=== PATIENT | female | born 1985 | race Caucasian/White ===

== ENCOUNTER → 2020-02-06 11:06 | Outpatient (BNVA) | payer MEDICAID, SELFPAY | PROVIDERS: Visit Provider Nurse Practitioner Women's Health | DX: O09.899 Supervision of other high risk pregnancies, unspecified trimester (principal); O99.340 Other mental disorders complicating pregnancy, unspecified trimester; F41.9 Anxiety disorder, unspecified; O99.341 Other mental disorders complicating pregnancy, first trimester; F32.9 Major depressive disorder, single episode, unspecified; G47.00 Insomnia, unspecified; O99.331 Smoking (tobacco) complicating pregnancy, first trimester; O99.311 Alcohol use complicating pregnancy, first trimester | CPT/HCPCS: 80307; 81000 ==

== ENCOUNTER → 2020-03-01 07:54 | Outpatient (BNVA) | payer MEDICAID, SELFPAY | PROVIDERS: Visit Provider Obstetrics & Gynecology | DX: O09.899 Supervision of other high risk pregnancies, unspecified trimester (principal); O99.311 Alcohol use complicating pregnancy, first trimester; O23.599 Infection of other part of genital tract in pregnancy, unspecified trimester; B96.89 Other specified bacterial agents as the cause of diseases classified elsewhere; F41.9 Anxiety disorder, unspecified; O99.341 Other mental disorders complicating pregnancy, first trimester; F32.9 Major depressive disorder, single episode, unspecified; G47.00 Insomnia, unspecified; O99.331 Smoking (tobacco) complicating pregnancy, first trimester | CPT/HCPCS: 80307; 81000; 83036; 85027; 86592; 86762; 86803; 86850; 86900; 87086; 87340; 87491; 87591 ==

== ENCOUNTER → 2020-03-28 14:19 | Outpatient (BNVA) | payer MEDICAID, SELFPAY | PROVIDERS: Visit Provider Nurse Practitioner Women's Health | DX: O09.899 Supervision of other high risk pregnancies, unspecified trimester (principal); B96.89 Other specified bacterial agents as the cause of diseases classified elsewhere; O23.599 Infection of other part of genital tract in pregnancy, unspecified trimester; F41.9 Anxiety disorder, unspecified; O99.341 Other mental disorders complicating pregnancy, first trimester; F32.9 Major depressive disorder, single episode, unspecified; G47.00 Insomnia, unspecified; O99.331 Smoking (tobacco) complicating pregnancy, first trimester; O99.311 Alcohol use complicating pregnancy, first trimester | CPT/HCPCS: 81000; 87086 ==

== ENCOUNTER → 2020-04-12 09:28 | Outpatient (BNVA) | payer MEDICAID, SELFPAY | PROVIDERS: Visit Provider Obstetrics & Gynecology | DX: Z36.89 Encounter for other specified antenatal screening (principal) | CPT/HCPCS: 76805 ==

== ENCOUNTER → 2020-04-16 09:52 | Outpatient (BNVA) | payer MEDICAID, SELFPAY | PROVIDERS: Visit Provider Obstetrics & Gynecology | DX: O09.899 Supervision of other high risk pregnancies, unspecified trimester (principal); F41.9 Anxiety disorder, unspecified; O99.341 Other mental disorders complicating pregnancy, first trimester; F32.9 Major depressive disorder, single episode, unspecified; G47.00 Insomnia, unspecified; O99.331 Smoking (tobacco) complicating pregnancy, first trimester; O99.311 Alcohol use complicating pregnancy, first trimester | CPT/HCPCS: 81000 ==

== ENCOUNTER 2020-04-19 08:56 | Emergency (ER) | payer MEDICAID, SELFPAY ==
[2020-04-19 09:01] VITALS: BP 127/78; PULSE 95; RESP 18; TEMP 36.3; O2SAT 95; BMI 33.3
--- NOTE | 2020-04-19 09:07 | CT_ITS ---
WS: [id number] CT NECK TECHNIQUE: Contrast-enhanced CT of the neck with coronal and sagittal reformatted images. CLINICAL INFORMATION: neck swlling, swelling in submandicular space COMPARISON: None. DLP: 666.[address] scans at [facility] use at least one of these dose optimization techniques: automat ed exposure control; mA and/or kV adjustment per patient size (includes targeted exams where dose is matched to clinical indication); or iterative reconstruction. FINDINGS:Small amount of inflammatory stranding and induration about the left aspect of the mandible. Recommend correlation for cellulitis. This is most likely odontogenic in origin. No evidence of oste omyelitis. Parotid glands are normal in appearance. Normal submandibular glands. A few prominent submandibular l ymph nodes likely reactive. No drainable fluid collection or abscess. Prominent left jugulodigastric lymph node measures 10 mm within normal limits. Tongue base is normal in appearance. Normal paraphary ngeal fat. No evidence of supraglottic or glottic mass. Normal subglottic airway. Lung apices are well aerated. Normal thyroid gland. Paranasal sinuses and mastoid air cells are well aerated. CT/CT neck w con* [id number] IMPRESSION: 1. Mild inflammatory stranding with induration and edema about the left anteri or mandible likely odontogenic in origin. Recommend correlation for dental infe ction and cellulitis. No osteomyelitis. 2. No drainable fluid collection or abscess. 3. A few reactive submandibular lymph nodes. 4. No cervical lymphadenopathy. 5. No other significant findings. Notified Mainor Russ DO at 04/19/2020 10:33 AM.
--- NOTE | 2020-04-19 09:15 | ED_ITS ---
HPI - Dental/Oral General: Chief complaint: Dental/Oral Stated complaint: Face swollen/took alot of Ibu/tylenol Time Seen by Provider: 04/19/20 08:59 History of Present Illness: HPI Narrative: 34 o female with a compilants of a dental abscess for the last several weeks. She had an appoitnment w a dentist last motnh and did not go. She had increasing pain and swelling. She is not had difficulty swallowing but she feels like it is changing her voice a bit. She has had swelling extending underneath the jaw. Yesterday she took over 9 g of Tylenol and also took several grams of ibuprofen. She has not had any fever sweats or chills. She is currently approximately 21 weeks MD Complaint: tooth pain Onset (ago): day(s) Duration: constant Severity: mild Relieving factors: nothing Exacerbating factors: nothing Associated symptoms: Reports gum swelling; Denies ear or mastoid pain, fever(s), odynophagia, sore throat or tongue swelling Treatment prior to arrival: none Review of Systems Const: Denies: fever(s) ENMT: Denies: odynophagia or ear or mastoid pain Card: Denies: chest pain, edema, dyspnea on exertion or orthopnea Resp: Denies: dyspnea, productive cough or non-productive cough GI: Denies: abdominal pain, nausea, vomiting, hematemesis, coffee ground emesis, diarrhea, constipation, bloating, hematochezia or melena : Denies: flank pain, difficulty voiding, dysuria, urinary frequency or urinary urgency Skin/Breast: Denies: rash or pruritus All/Imm: Denies: tongue swelling PFSH ED PFSH: Medical History Anxiety and depression Anxiety during Depression during No pertinent past medical history neghx: htn,dm,thyroid,dvt/pe,herpes ---denies partner with herpes Surgical History History of tonsillectomy and adenoidectomy Family History Mother Diabetes Unknown Heart disease Maternal side in general Thyroid disease Maternal side in general Family/Other Ovarian cancer Maternal Aunt-- dx age unknown Denies family history of Colon cancer Breast cancer Bleeding disorder Hypertension Uterine cancer Stroke Social History Additional social history: - Tobacco use: smokes 0.25 PPD; this is down from 1-1.5 ppd Alcohol use: no longer drinking during as of 04/16/2020, had been having couple glasses of wine Drug use: denies Physical Exam Const: COMMON NORMALS: no acute distress GENERAL APPEARANCE: cooperative an d comfortable ORIENTATION/CONSCIOUSNESS: Yes awake, Yes oriented to person, Yes oriented to place and Yes oriented to time HENMT: COMMON NORMALS: normocephalic, atraumatic and hearing grossly normal bilaterally HEAD & SCALP: normocephalic and atraumatic Neck/C-Spine: OTHER: Moderate swelling of the left mid mandible does not ext end into the submandibular space on exam Lymph: OTHER: No submandibular lymphadenopathy Resp: COMMON NORMALS: normal respiratory effort, No retractions, No use of accessory muscles and clear to auscultation bilaterally AUSCULTATION: clear to auscultation bilaterally Cardio: COMMON NORMALS: regular rate, regular rhythm and No murmurs present (Cardio) RATE: regular rate RHYTHM: regular rhythm GI: COMMON NORMALS: Soft to palpation and No hepatosplenomegaly present AUSCULTATION: Yes normoactive bowel sounds PALPATION: Yes Soft to palpation, No Tenderness to palpation present (GI), No Guarding due to palpation present (GI) and Yes No hepatosplenomegaly present Extremity: COMMON NORMALS: normal to inspection, capillary refill normal, no clubbing, cyanosis or edema, no calf tenderness and no pedal edema Neuro: SENSORIUM/ORIENTATION: Yes oriented to person, Yes oriented to place and Yes oriented to time Skin: COMMON NORMALS: no rashes or lesions noted GENERAL SKIN EXAM: no rashes or lesions noted Course Vital Signs: Vital signs: Vital Signs Temperature 97.3 F L 04/19/20 09:01 Pulse Rate 85 04/19/20 09:34 Respiratory Rate 18 04/19/20 09:34 Blood Pressure 115/71 04/19/20 09:34 Pulse Oximetry 95 04/19/20 09:34 MDM - Dental/Oral 2 MDM Narrative: Medical decision making narrative: Start on antibiotics pain medications given if any difficulty speech or swallowing return follow-up with dentist soon as possible Lab Data: Labs: Lab Results 04/19/20 04/19/20 04/19/20 Range/Units 09:19 09:19 10:57 WBC 13.0 H (4.0-10.0) 10^3/ uL RBC 4.33 (4.1-5.3) 10^6/u L Hgb 12.0 (11.5-15.3) g/dL Hct 37.8 (37.0-47.0) % MCV 87.3 (81-99) fL MCH 27.7 L (28.0-34.0) pg MCHC 31.7 (30.0-36.0) g/dL RDW 15.1 (12.1-15.1) % Plt Count 269 (130-400) 10^3/c mm MPV 9.5 (7.4-10.4) fL Neut % (Auto) 75.3 % Lymph % (Auto) 16.8 % Mora % (Auto) 4.9 % Eos % (Auto) 1.7 % Baso % (Auto) 0.5 % Neut # (Auto) 9.74 H (1.8-7.7) 10^3/u L Lymph # (Auto) 2.2 (0.8-4.8) 10^3/u L Mora # (Auto) 0.6 (0.2-0.9) 10^3/u L Eos # (Auto) 0.2 (0.0-0.8) 10^3/u L Baso # (Auto) 0.1 (0.0-0.1) 10^3/u L Nucleated RBC % (a uto) 0 % Nucleated RBCs # 0.0 /100WBC Sodium 134 L (136-145) mmol/L Potassium 3.9 (3.5-5.1) mmol/L Chloride 103 (98-107) mmol/L Carbon Dioxide 20 L (22-29) mmol/L Anion Gap 14.9 (5-19) BUN 8 (6-20) mg/dL Creatinine 0.4 L (0.5-0.9) mg/dL GFR Calculation 183.8 H (90-130) mL/min Glucose 107 (65-115) mg/dL Calculated Osmolal ity 277 L (285-295) mOsm/k g Calcium 9.0 (8.5-10.5) mg/dL Total Bilirubin 0.3 (0.15-1.2) mg/dL AST 8 (0-32) U/L ALT 7 (0-33) U/L Alkaline Phosphata se 74 (35-105) IU/L Total Protein 7.0 (6.6-8.7) g/dL Albumin 3.7 (3.5-5.2) g/dL Globulin 3.3 (1.3-4.6) g/dL Urine Color Yellow (Yellow) Urine Appearance Clear (CLEAR) Urine pH 6.5 (5-7) Ur Specific Gravit y 1.010 (1.005-1.030) Urine Protein Neg (Negative) Urine Glucose (UA) Norm (Normal) Urine Ketones Negative (Negative) Urine Blood Neg (Negative) Urine Nitrate Negative (Negative) Urine Bilirubin Neg (Negative) Urine Urobilinogen Norm (Negative) mg/dL Ur Leukocyte Jenelle ase Negative (Negative) Salicylates < 0.3 L (3-10) mg/dL Acetaminophen < 5.0 L (10-30) ug/mL Discharge Plan Discharge Patient Disposition: Home Clinical Impression: Dental caries, state, incidental Condition: Stable Prescriptions: New hydrocodone-acetaminophen 5-325 mg tablet 1 tab PO Q6H PRN (Reason: pain) Qty: 15 RF: 0 Augmentin 875-125 mg tablet 1 tab PO BID Qty: 20 RF: 0 No Action fluoxetine [Prozac] 40 mg capsule 40 mg PO BEDTIME RF: 0 pantoprazole [Protonix] 40 mg tablet,delayed release (DR/EC) 40 mg PO BEDTIME RF: 0 prenat.vits,cristian,[id number] Tablet 1 tab PO BEDTIME RF: 0 trazodone 50 mg tablet 50 mg PO BEDTIME RF: 0 quetiapine [Seroquel] 100 mg tablet 400 mg PO BEDTIME RF: 0 Tylenol Extra Strength 500 mg Tablet 1,000 - 3,000 mg PO PRN RF: 0 ibuprofen 200 mg Tablet 400 mg PO PRN RF: 0 Claritin 10 mg Tablet 10 mg PO DAILY PRN (Reason: Allergy Symptoms) RF: 0 Discharge Orders: Discharge ED (Routine); Ordered 01/29/21 Ordered By: Mainor Russ Discharge Diet: Usual diet Discharge Activity: Increase activity as tolerated Activity Restrictions/Additional Instructions: Follow-up with dentist as soon as you are able. If worsens return. Coding Level of Care Code ED Medical Scientist for Mariano Jaimes
[2020-04-19 09:26] LABS: Basophils # 0.1 10^3/uL (0.0-0.1); Basophils % 0.5 %; Eosinophils # 0.2 10^3/uL (0.0-0.8); Eosinophils % 1.7 %; Hematocrit 37.8 % (37.0-47.0); Lymphocytes # 2.2 10^3/uL (0.8-4.8); Lymphocytes % 16.8 %; Mean Corpuscular HGB Conc 31.7 g/dL (30.0-36.0); Mean Corpuscular Hemoglobin 27.7 pg (28.0-34.0); Mean Corpuscular Volume 87.3 fL (81-99); Mean Platelet Volume 9.5 fL (7.4-10.4); Monocytes # 0.6 10^3/uL (0.2-0.9); Monocytes % 4.9 %; Neutrophils # 9.74 10^3/uL (1.8-7.7); Neutrophils % 75.3 %; Nucleated Red Blood Cells % 0 %; Platelet Count 269 10^3/cmm (130-400); Red Blood Count 4.33 10^6/uL (4.1-5.3); Red Cell Distribution Width 15.1 % (12.1-15.1)
[2020-04-19 09:34] VITALS: BP 115/71; PULSE 85; RESP 18; O2SAT 95
[2020-04-19 09:47] LABS: Alanine Aminotransferase 7 U/L (0-33); Albumin Level 3.7 g/dL (3.5-5.2); Alkaline Phosphatase 74 IU/L (35-105); Anion Gap 14.9 (5-19); Aspartate Amino Transferase 8 U/L (0-32); Blood Urea Nitrogen 8 mg/dL (6-20); Carbon Dioxide 20 mmol/L (22-29); Chloride 103 mmol/L (98-107); Globulin 3.3 g/dL (1.3-4.6); Glomerular Filtration Rate 183.8 mL/min (90-130); Glucose 107 mg/dL (65-115); Osmolality Calculated 277 mOsm/kg (285-295); Potassium 3.9 mmol/L (3.5-5.1); Sodium 134 mmol/L (136-145); Total Bilirubin 0.3 mg/dL (0.15-1.2)
[2020-04-19 09:53] LABS: Acetaminophen < 5.0 ug/mL (10-30); Salicylate < 0.3 mg/dL (3-10)
[2020-04-19] MEDS: HYDROcodone-acetaminophen 5-325 mg Tablet 1 TAB PO (10:05)
[2020-04-19] MEDS: iohexol 300 mg/mL 100 mL Btl IV (10:11)
[2020-04-19 11:10] LABS: Add Urine Microscopic? NO
[2020-04-19 11:38] LABS: Urine Color Yellow (Yellow)
[2020-04-19 11:39] LABS: Bilirubin Urine Neg (Negative); Blood Urine Neg (Negative); Glucose Urine UA Norm (Normal); Ketones Urine Negative (Negative); Leukocyte Esterase Urine Negative (Negative); Nitrate Urine Negative (Negative); Protein Urine Neg (Negative); Urine Appearance Clear (CLEAR); Urobilinogen Urine Norm (Negative); pH Urine 6.5 (5-7)
== END 2020-04-19 11:16 | disposition home or self-care (01) ==
PROVIDERS: Emergency Provider Family Medicine
DX: O26.892 Other specified pregnancy related conditions, second trimester (principal); Z3A.21 21 weeks gestation of pregnancy; K02.9 Dental caries, unspecified
CPT/HCPCS: 12345; 70491; 80053; 80307; 81003; 85025; 99283; Q9967

== ENCOUNTER → 2020-05-21 14:34 | Outpatient (BNVA) | payer MEDICAID, SELFPAY | PROVIDERS: Visit Provider Obstetrics & Gynecology | DX: O99.342 Other mental disorders complicating pregnancy, second trimester (principal); F41.9 Anxiety disorder, unspecified; F32.9 Major depressive disorder, single episode, unspecified; G47.00 Insomnia, unspecified; O99.332 Smoking (tobacco) complicating pregnancy, second trimester; O99.312 Alcohol use complicating pregnancy, second trimester; Z3A.25 25 weeks gestation of pregnancy | CPT/HCPCS: 81000; 82950 ==

== ENCOUNTER → 2020-05-28 14:18 | Outpatient (BNVA) | payer MEDICAID, SELFPAY | PROVIDERS: Visit Provider Obstetrics & Gynecology | DX: O09.899 Supervision of other high risk pregnancies, unspecified trimester (principal) | CPT/HCPCS: 85025 ==

== ENCOUNTER 2020-06-10 16:32 | Outpatient (CLI) | payer MEDICAID, SELFPAY ==
[2020-06-10 16:32] VITALS: BMI 32.1
[2020-06-10 16:51] VITALS: BP 105/57; PULSE 87
[2020-06-10 16:56] VITALS: TEMP 36.2
--- NOTE | 2020-06-10 17:21 | PM.ACPR ---
Procedure/Consent Procedure Narrative: NONSTRESS TEST: Place of test: [facility] [place] [facility] [place] Indication: 34-year-old 5 para 3-0-1-3 at 28 weeks and 3 days, abdominal pain Date and time of test: 06/10/2020 Baseline: 145 Variability: moderate Accelerations: Accelerations present Decelerations: No decelerations Tocometry: No contractions INTERPRETATION: NST reactive-appropriate for gestational age-clinical correlation recommended, continue kick counts
[2020-06-10 18:45] VITALS: BP 105/57; PULSE 87; RESP 18; TEMP 36.2
== END 2020-06-10 18:36 | disposition home or self-care (01) ==
LOC: OPOB 16:37 → OBGYN 16:37
PROVIDERS: Visit Provider Obstetrics & Gynecology
DX: O26.899 Other specified pregnancy related conditions, unspecified trimester (principal); Z3A.00 Weeks of gestation of pregnancy not specified; M54.9 Dorsalgia, unspecified
CPT/HCPCS: 36415; 96360; 99211

== ENCOUNTER → 2020-06-11 13:50 | Outpatient (BNVA) | payer MEDICAID, SELFPAY | PROVIDERS: Visit Provider Obstetrics & Gynecology | DX: O09.899 Supervision of other high risk pregnancies, unspecified trimester (principal); O26.899 Other specified pregnancy related conditions, unspecified trimester; Z67.91 Unspecified blood type, Rh negative; O99.311 Alcohol use complicating pregnancy, first trimester; O99.331 Smoking (tobacco) complicating pregnancy, first trimester; F32.9 Major depressive disorder, single episode, unspecified; I83.892 Varicose veins of left lower extremity with other complications; O26.893 Other specified pregnancy related conditions, third trimester; O99.341 Other mental disorders complicating pregnancy, first trimester; O99.340 Other mental disorders complicating pregnancy, unspecified trimester; F41.9 Anxiety disorder, unspecified; G47.00 Insomnia, unspecified | CPT/HCPCS: 81000; 85027; 86850 ==

== ENCOUNTER → 2020-06-25 13:03 | Outpatient (BNVA) | payer MEDICAID, SELFPAY | PROVIDERS: Visit Provider Obstetrics & Gynecology | DX: O09.899 Supervision of other high risk pregnancies, unspecified trimester (principal) | CPT/HCPCS: 81000 ==

== ENCOUNTER 2020-07-01 17:20 | Outpatient (CLI) | payer MEDICAID, SELFPAY ==
[2020-07-01] VITALS (9 sets, daily range): BP systolic 118–137; BP diastolic 74–83; PULSE 86–112; RESP 18; TEMP 36.7; BMI 32.5
[2020-07-01] MEDS: lactated ringers 1,000 ML 999 ML IV (18:09)
[2020-07-01] MEDS: lactated ringers 1,000 ML 125 ML IV (18:09)
[2020-07-01 18:14] LABS: Bilirubin Urine 1+ (Negative); Blood Urine 2+ (Negative); Glucose Urine UA Norm (Normal); Ketones Urine 3+ (Negative); Leukocyte Esterase Urine 2+ (Negative); Nitrate Urine Negative (Negative); Protein Urine Neg (Negative); Urine Appearance Cloudy (CLEAR); Urine Color Yellow (Yellow); Urobilinogen Urine 4 mg/dL (Negative); pH Urine 6 (5-7)
[2020-07-01 18:15] LABS: Bacteria Urine 3+ /hpf; Squamous Epithelial Cell Urine 40-55 /hpf (0-5); WBC Urine >100 /hpf (0-5)
[2020-07-01 18:16] LABS: Basophils # 0.1 10^3/uL (0.0-0.1); Basophils % 0.4 %; Eosinophils # 0.3 10^3/uL (0.0-0.8); Eosinophils % 2.5 %; Hematocrit 38.2 % (37.0-47.0); Hemoglobin 12.4 g/dL (11.5-15.3); Lymphocytes # 2.2 10^3/uL (0.8-4.8); Lymphocytes % 16.8 %; Mean Corpuscular HGB Conc 32.5 g/dL (30.0-36.0); Mean Corpuscular Hemoglobin 28.7 pg (28.0-34.0); Mean Corpuscular Volume 88.4 fL (81-99); Monocytes # 0.7 10^3/uL (0.2-0.9); Monocytes % 5.4 %; Neutrophils # 9.75 10^3/uL (1.8-7.7); Nucleated Red Blood Cells % 0 %; Platelet Count 250 10^3/cmm (130-400); Red Blood Count 4.32 10^6/uL (4.1-5.3); Red Cell Distribution Width 14.4 % (12.1-15.1); White Blood Count 13.4 10^3/uL (4.0-10.0)
[2020-07-01 18:46] LABS: Alanine Aminotransferase 9 U/L (0-33); Albumin Level 3.6 g/dL (3.5-5.2); Alkaline Phosphatase 111 IU/L (35-105); Blood Urea Nitrogen 4 mg/dL (6-20); Calcium 8.6 mg/dL (8.5-10.5); Carbon Dioxide 18 mmol/L (22-29); Chloride 103 mmol/L (98-107); Glomerular Filtration Rate 256.2 mL/min (90-130); Glucose 93 mg/dL (65-115); Osmolality Calculated 277 mOsm/kg (285-295); Sodium 135 mmol/L (136-145); Total Bilirubin 0.7 mg/dL (0.15-1.2); Total Protein 6.6 g/dL (6.6-8.7)
[2020-07-01 18:50] LABS: Anion Gap 17.8 (5-19); Potassium 3.8 mmol/L (3.5-5.1)
[2020-07-01 18:51] LABS: Aspartate Amino Transferase 15 U/L (0-32)
--- NOTE | 2020-07-01 19:00 | PM.ACPR ---
Procedure/Consent Procedure Narrative: NONSTRESS TEST: Place of test: [facility] [place] Indication: 34-year-old 5 para 3-0-1-3 at 31 weeks and 3 days, epigastric pain Date and time of test: 07/01/2020, 6:45 PM Baseline: 140 Variability: Moderate Accelerations: Present Decelerations: None Tocometry: Irregular contractions INTERPRETATION: NST reactive, continue kick counts
== END 2020-07-01 19:40 | disposition home or self-care (01) ==
LOC: OPOB 17:25 → OBGYN 19:30
PROVIDERS: Visit Provider Obstetrics & Gynecology
DX: O26.899 Other specified pregnancy related conditions, unspecified trimester (principal); Z3A.00 Weeks of gestation of pregnancy not specified; R10.10 Upper abdominal pain, unspecified
CPT/HCPCS: 36415; 59025; 80053; 81001; 85025; 99211

== ENCOUNTER 2020-07-01 19:45 | Emergency (ER) | payer MEDICAID, SELFPAY ==
[2020-07-01 19:49] VITALS: BP 120/77; PULSE 92; RESP 16; TEMP 36.9; O2SAT 99; BMI 33.1
[2020-07-01 20:21] VITALS: BP 111/69; PULSE 92; RESP 16; O2SAT 96
--- NOTE | 2020-07-01 20:32 | ED_ITS ---
HPI - Abdominal Pain General: Chief Complaint: Abdominal Pain Stated Complaint: UPPER ABD PAIN/HAS ALREADY SEEN OB Time Seen by Provider: 07/01/20 20:22 History of Present Illness: HPI narrative: Patient is a 34-year-old female that is approximately 30 weeks and comes to the ED with abdominal pain. Patient was seen at OB unit first and baby was checked and evaluated and cleared on OB unit. She was also given 1 L of fluids while in the OB unit and sent here to the ED since this is not an OB complaint. For the past 3 days patient has had epigastric pain. She says whenever she eats anything the epigastric pain is worse. She endorses having some episodes of emesis over the past couple days. She rates the pain a 7 out of 10. She says she will belch sometimes and get a little bit of relief but pain immediately comes back. She says she has had decreased appetite and has only been able to keep down applesauce over the past couple days. Patient does have history of GERD and she currently takes Protonix. Patient denies any UTI symptoms. Associated Symptoms: Reports belching, heartburn, nausea and vomiting; Denies chills, constipation, diarrhea, dysuria, fever(s), hematochezia and hematuria Review of Systems Const: Denies: fever(s), chills or fatigue Eyes: Denies: change in vision or eye discomfort ENMT: Denies: throat pain, odynophagia, nasal discharge or nasal congestion Card: Denies: chest pain, palpitations, edema, swelling of feet/ankles, dyspnea on exertion or orthopnea Resp: Denies: dyspnea, productive cough or non-productive cough GI: Reports: abdominal pain, nausea, vomiting, heartburn and belching; Denies: diarrhea, constipation or hematochezia : Denies: flank pain, dysuria or hematuria Musc: Denies: neck pain, back pain or extremity swelling Skin/Breast: Denies: rash or new lesions Neuro: Denies: headache(s), numbness in extremities or weakness in extremities PFSH ED PFSH: Medical History Anxiety and depression Anxiety during Depression during No pertinent past medical history neghx: htn,dm,thyroid,dvt/pe,herpes ---denies partner with herpes Surgical History History of tonsillectomy and adenoidectomy Family History Mother Diabetes Unknown Heart disease Maternal side in general Thyroid disease Maternal side in general Family/Other Ovarian cancer Maternal Aunt-- dx age unknown Denies family history of Colon cancer Breast cancer Bleeding disorder Hypertension Uterine cancer Stroke Social History Additional social history: - Tobacco use: smokes 0.25 PPD; this is down from 1-1.5 ppd Alcohol use: no longer drinking during as of 04/16/2020, had been having couple glasses of wine Drug use: denies Female Reproductive History: : 5 Physical Exam Const: COMMON NORMALS: patient oriented x3, healthy appearing and alert GENERAL APPEARANCE: cooperative and comfortable HENMT: COMMON NORMALS: normocephalic HEAD & SCALP: normocephalic MOUTH: Normal oral and palatal mucosa present THROAT: posterior oropharynx normal and uvula midline Neck/C-Spine: COMMON NORMALS: supple GENERAL: Yes normal visual inspection Resp: COMMON NORMALS: normal respiratory effort, No retractions, No use of accessory muscles and clear to auscultation bilaterally AUSCULTATION: clear to auscultation bilaterally Cardio: COMMON NORMALS: regular rate, regular rhythm, S1 normal heart sound present, S2 normal heart sound present, No gallops present (Cardio), No clicks present (Cardio), No murmurs present (Cardio) and Peripheral pulses 2+ throughout RATE: regular rate RHYTHM: regular rhythm HEART SOUNDS: S1 normal heart sound present and S2 normal heart sound present PERIPHERAL PULSES: Peripheral pulses 2+ throughout GI: COMMON NORMALS: Normal to inspection, nondistended, normoactive bowel sounds present, Soft to palpation and no masses INSPECTION: Yes gravid abdomen PALPATION: Yes Soft to palpation and Yes Tenderness to palpation present (GI) Details: RUQ (positive mane sign) : COMMON NORMALS: Yes no CVA tenderness BLADDER/KIDNEY EXAM: Yes no CVA tenderness Back/Pelvis: COMMON NORMALS: no CVA tenderness Extremity: COMMON NORMALS: normal to inspection Neuro: COMMON NORMALS: patient oriented x3 SENSORIUM/ORIENTATION: Yes alert GAIT: Yes Normal gait present Skin: GENERAL SKIN EXAM: dry skin Course Reevaluation(s): Reevaluation #1: Patient's symptoms were controlled with IV morphine, Zofran and Maalox and she was able to keep p.o. fluids down. Vital Signs: Vital signs: Vital Signs Temperature 98.4 F 07/01/20 19:49 Pulse Rate 90 07/02/20 00:00 Respiratory Rate 18 07/02/20 00:00 Blood Pressure 102/74 07/02/20 00:00 Pulse Oximetry 97 07/02/20 00:00 MDM - Abdominal Pain MDM Narrative: Medical decision making narrative: Patient is a 34-year-old female who was 30 weeks comes to the ED with epigastric pain, nausea and vomiting. Patient was first seen at the OB unit and they checked on baby and cleared patient and sent her to the ED for further evaluation of abdominal pain. While patient was in the OB unit they gave her 1 L of IV fluids. Patient says she has had the symptoms for the past 3 days. Exam was remarkable for epigastric and right upper quadrant tenderness with positive Mane sign. Patient had labs drawn and OB unit and her white blood cell count was slightly elevated at 13.4 but on the rest of her CBC and CMP were unremarkable. Lipase normal. Ultrasound of the gallbladder showed cholelithiasis and gallbladder sludge. No signs of acute cholecystitis or bladder wall thickening. Common bile duct was normal. Patient was given IV Zofran, morphine and Maalox and her symptoms improved. Patient was able to tolerate p.o. fluids and keep them down. Patient was diagnosed with cholelithiasis she was discharged home with written prescription for hydrocodone 5/325 mg 8 tablets and Zofran. She was told to contact her OB doctor tomorrow morning and set up an appointment for her to be seen in the next couple days to be reevaluated. Return to ED precautions given. Patient understood and agree with plan. Lab Data: Attestation: I reviewed the patient's lab results. Labs: Patient had labs drawn in OB unit before being sent here in the ED. She had a white blood cell count of 13.4 and AST was 15, ALT 9 and alk phos was 111. Total bili 0.7. Imaging Data ^: US: Attestation: I personally reviewed and interpreted this imaging study as follows: Radiologist's impression: [address] [id number] Ultrasound Report Signed Patient: Zaira Ko Unit #: [id number] : 1985 Age/Sex: 34 / F ADM Date: 07/01/20 Loc: ER Room/Bed: Attending Dr: Ordering Provider/Ordering MD: Tono Rey Date of Service: 07/01/20 Procedure(s): US gall bladder 71038 Accession Number(s): [id number] Report Number: [id number] PROCEDURE INFORMATION: Exam: US Abdomen, Limited; Right Upper Quadrant Exam date and time: 07/01/2020 10:15 PM Age: 34 years old Clinical indication: Abdominal pain; ; Additional info: Ruq and epigastric pain TECHNIQUE: Imaging protocol: US abdomen. Real time ultrasound with image documentation. Limited exam focused on the right upper quadrant. Total images: 58 COMPARISON: No relevant prior studies available. FINDINGS: Liver: Normal hepatic parenchyma echogenicity. No visible hepatic mass or cystic structure. Gallbladder: Cholelithiasis. Small amount of gallbladder sludge. No gallbladder wall thickening or pericholecystic fluid. Common bile duct: Normal. No stones. No dilation. Common bile duct 5 mm. Pancreas: Visualized pancreas is unremarkable. Right kidney: Normal. No mass. No hydronephrosis. Right renal dimensions 9.8 cm x 5.3 cm x 5.6 cm. Aorta: The abdominal aorta, where visualized, is nonaneurysmal. Portal venous: Antegrade portal venous flow. Inferior vena cava: Patent inferior vena cava. US/US gall bladder [id number] IMPRESSION: 1. Cholelithiasis. 2. Small amount of gallbladder sludge. Dictated By: Serge Schmidt Signed By: Serge Schmidt Signed Date/Time: 07/01/202247 DD/ 46 Discharge Plan Discharge Patient Disposition: Home Clinical Impression: Cholelithiasis Qualifiers: Cholelithiasis location: gallbladder Cholecystitis presence: without cholecystitis Biliary obstruction: without biliary obstruction Qualified Code(s): K80.20 - Calculus of gallbladder without cholecystitis without obstruction Condition: Stable Prescriptions: New Zofran 4 mg tablet 4 mg PO Q8H Qty: 12 RF: 0 No Action fluoxetine [Prozac] 40 mg capsule 40 mg PO BEDTIME RF: 0 pantoprazole [Protonix] 40 mg tablet,delayed release (DR/EC) 40 mg PO BEDTIME RF: 0 prenat.vits,cristian,[id number] Tablet 1 tab PO BEDTIME RF: 0 trazodone 50 mg tablet 50 mg PO BEDTIME RF: 0 quetiapine [Seroquel] 100 mg tablet 400 mg PO BEDTIME RF: 0 albuterol sulfate 90 mcg/actuation HFA aerosol inhaler 2 puff inhalation Q6H PRN (Reason: shortness of breath or wheezing) Qty: 8.5 RF: 0 fluticasone propionate [Flonase Allergy Relief] 50 mcg/actuation spray,suspension 1 spray intranasal BID PRN (Reason: nasal congestion) Qty: 9.9 RF: 0 Tylenol Extra Strength 500 mg Tablet 1,000 - 3,000 mg PO PRN RF: 0 Claritin 10 mg Tablet 10 mg PO DAILY PRN (Reason: Allergy Symptoms) RF: 0 Discharge Orders: Discharge ED (Routine); Ordered 07/02/20 Ordered By: Tono Rey Discharge Diet: Advance as tolerated and Clear Liquid Discharge Activity: Increase activity as tolerated Patient Instructions: Cholelithiasis Activity Restrictions/Additional Instructions: Follow-up with medical provider as directed. 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 T andres medications as prescribed. Start slow with a clear liquid diet and then advance diet as tolerated. Avoid fatty and greasy foods that can cause worsening symptoms. Return to the ER or your medical provider if condition worsens. Please read and understand discharge instructions. If any questions, please ask. Coding Level of Care Code ED Nurse Researcher for Mariano Fwd Exam Comprehensive
--- NOTE | 2020-07-01 21:07 | USR_ITS ---
PROCEDURE INFORMATION: Exam: US Abdomen, Limited; Right Upper Quadrant Exam date and time: 07/01/2020 10:15 PM Age: 34 years old Clinical indication: Abdominal pain; ; Additional info: Ruq and epigastric pain TECHNIQUE: Imaging protocol: US abdomen. Real time ultrasound with image documentation. Limited exam focused on the right upper quadrant. Total images: 58 COMPARISON: No relevant prior studies available. FINDINGS: Liver: Normal hepatic parenchyma echogenicity. No visible hepatic mass or cystic structure. Gallbladder: Cholelithiasis. Small amount of gallbladder sludge. No gallbladder wall thickening or pericholecystic fluid. Common bile duct: Normal. No stones. No dilation. Common bile duct 5 mm. Pancreas: Visualized pancreas is unremarkable. Right kidney: Normal. No mass. No hydronephrosis. Right renal dimensions 9.8 cm x 5.3 cm x 5.6 cm. Aorta: The abdominal aorta, where visualized, is nonaneurysmal. Portal venous: Antegrade portal venous flow. Inferior vena cava: Patent inferior vena cava. US/US gall bladder [id number] IMPRESSION: 1. Cholelithiasis. 2. Small amount of gallbladder sludge.
[2020-07-01] MEDS: alum-mag-hydroxide-sime 30 mL UDC PO (21:08)
[2020-07-01 21:18] VITALS: BP 112/72; PULSE 86; RESP 16; O2SAT 96
[2020-07-01] MEDS: ondansetron 2 mg/ML SDV 2 mL 4 MG IVP (21:46)
[2020-07-01] MEDS: morphine 4 mg/mL SDV 1 mL 2 MG IVP (21:46)
[2020-07-01 22:16] VITALS: BP 106/82; PULSE 88; RESP 18; O2SAT 98
[2020-07-01] MEDS: morphine 4 mg/mL SDV 1 mL IVP (22:44)
[2020-07-01 23:43] VITALS: BP 113/74; PULSE 84; RESP 16; O2SAT 96
[2020-07-02] VITALS: BP 102/74; PULSE 90; RESP 18; O2SAT 97
[2020-07-02] MEDS: ondansetron 2 mg/ML SDV 2 mL 4 MG IVP
[2020-07-02] MEDS: morphine 4 mg/mL SDV 1 mL IVP
== END 2020-07-02 00:30 | disposition home or self-care (01) ==
PROVIDERS: Emergency Provider Physician Assistant
DX: O99.613 Diseases of the digestive system complicating pregnancy, third trimester (principal); K80.20 Calculus of gallbladder without cholecystitis without obstruction; O99.333 Smoking (tobacco) complicating pregnancy, third trimester; F17.210 Nicotine dependence, cigarettes, uncomplicated; Z3A.30 30 weeks gestation of pregnancy
CPT/HCPCS: 76705; 96374; 96375; 96376; 99283; J2270; J2405

== ENCOUNTER → 2020-07-12 09:38 | Outpatient (BNVA) | payer MEDICAID, SELFPAY | PROVIDERS: Visit Provider Obstetrics & Gynecology | DX: O09.899 Supervision of other high risk pregnancies, unspecified trimester (principal); Z02.83 Encounter for blood-alcohol and blood-drug test; I83.892 Varicose veins of left lower extremity with other complications; F32.9 Major depressive disorder, single episode, unspecified; O99.331 Smoking (tobacco) complicating pregnancy, first trimester; O99.311 Alcohol use complicating pregnancy, first trimester; K80.20 Calculus of gallbladder without cholecystitis without obstruction; O26.613 Liver and biliary tract disorders in pregnancy, third trimester; G47.00 Insomnia, unspecified; O99.340 Other mental disorders complicating pregnancy, unspecified trimester; F41.9 Anxiety disorder, unspecified; O26.893 Other specified pregnancy related conditions, third trimester; Z67.91 Unspecified blood type, Rh negative; O99.341 Other mental disorders complicating pregnancy, first trimester | CPT/HCPCS: 80307; 81000 ==

== ENCOUNTER → 2020-07-23 09:39 | Outpatient (BNVA) | payer MEDICAID, SELFPAY | PROVIDERS: Visit Provider Nurse Practitioner Women's Health | DX: O09.899 Supervision of other high risk pregnancies, unspecified trimester (principal); O26.613 Liver and biliary tract disorders in pregnancy, third trimester; K80.20 Calculus of gallbladder without cholecystitis without obstruction; O99.343 Other mental disorders complicating pregnancy, third trimester; F32.9 Major depressive disorder, single episode, unspecified; O99.333 Smoking (tobacco) complicating pregnancy, third trimester; O26.13 Low weight gain in pregnancy, third trimester; G47.00 Insomnia, unspecified; F41.9 Anxiety disorder, unspecified; O99.311 Alcohol use complicating pregnancy, first trimester; O99.340 Other mental disorders complicating pregnancy, unspecified trimester | CPT/HCPCS: 81000 ==

== ENCOUNTER → 2020-08-06 13:11 | Outpatient (BNVA) | payer MEDICAID, SELFPAY | PROVIDERS: Visit Provider Obstetrics & Gynecology | DX: O26.893 Other specified pregnancy related conditions, third trimester (principal); O09.899 Supervision of other high risk pregnancies, unspecified trimester; F41.9 Anxiety disorder, unspecified; G47.00 Insomnia, unspecified; O26.13 Low weight gain in pregnancy, third trimester; O99.340 Other mental disorders complicating pregnancy, unspecified trimester; O99.311 Alcohol use complicating pregnancy, first trimester; O99.333 Smoking (tobacco) complicating pregnancy, third trimester; Z67.91 Unspecified blood type, Rh negative; O99.343 Other mental disorders complicating pregnancy, third trimester; F32.9 Major depressive disorder, single episode, unspecified; N89.8 Other specified noninflammatory disorders of vagina; O98.819 Other maternal infectious and parasitic diseases complicating pregnancy, unspecified trimester; B37.3 Candidiasis of vulva and vagina; O26.613 Liver and biliary tract disorders in pregnancy, third trimester; K80.20 Calculus of gallbladder without cholecystitis without obstruction; I83.892 Varicose veins of left lower extremity with other complications | CPT/HCPCS: 81000; 83986; 85025; 87081 ==

== ENCOUNTER → 2020-08-13 09:47 | Outpatient (BNVA) | payer MEDICAID, SELFPAY | PROVIDERS: Visit Provider Obstetrics & Gynecology | DX: Z34.90 Encounter for supervision of normal pregnancy, unspecified, unspecified trimester (principal) | CPT/HCPCS: 81000 ==

== ENCOUNTER 2020-08-14 18:52 | Inpatient (IN) | payer MEDICAID, SELFPAY ==
[2020-08-14] VITALS (36 sets, daily range): BP systolic 102–126; BP diastolic 63–83; PULSE 70–90; RESP 15–18; TEMP 37; O2SAT 96–98; BMI 34.3
[2020-08-14] MEDS: dextrose 5%-lactated ringers 1,000 ML 125 ML IV (19:57)
[2020-08-14] MEDS: fentaNYL 50 mcg/mL INJ 2mL IVP (19:59)
[2020-08-14 20:01] LABS: Basophils # 0.1 10^3/uL (0.0-0.1); Basophils % 0.4 %; Eosinophils # 0.2 10^3/uL (0.0-0.8); Eosinophils % 1.3 %; Hematocrit 38.4 % (37.0-47.0); Hemoglobin 12.5 g/dL (11.5-15.3); Lymphocytes % 21.4 %; Mean Corpuscular HGB Conc 32.6 g/dL (30.0-36.0); Mean Corpuscular Hemoglobin 28.9 pg (28.0-34.0); Mean Corpuscular Volume 88.9 fL (81-99); Mean Platelet Volume 9.8 fL (7.4-10.4); Monocytes # 0.8 10^3/uL (0.2-0.9); Monocytes % 5.6 %; Neutrophils # 9.98 10^3/uL (1.8-7.7); Neutrophils % 70.4 %; Nucleated Red Blood Cells % 0 %; Platelet Count 272 10^3/cmm (130-400); Red Blood Count 4.32 10^6/uL (4.1-5.3); Red Cell Distribution Width 14.3 % (12.1-15.1); White Blood Count 14.2 10^3/uL (4.0-10.0)
[2020-08-14] MEDS: lactated ringers 1,000 ML 999 ML IV (20:10)
[2020-08-14 20:43] LABS: Amphetamines Screen Urine Negative (Negative); Barbiturates Screen Urine Negative (Negative); Benzodiazepines Screen Urine Negative (Negative); Cocaine Screen Urine Negative (Negative); Opiate Screen Urine Negative (Negative); PCP Screen Urine Negative (Negative); THC Screen Urine Negative (Negative)
--- NOTE | 2020-08-14 21:28 | P.ANESASSM_ITS ---
Pre-Anesthetic Assessment Pre-Anesthetic Assessment: Height/Weight: Height 1.6 m Temp Pulse Resp BP Pulse Ox 98.6 F 78 15 111/68 97 08/14/20 18:57 08/14/20 21:22 08/14/20 19:59 08/14/20 21:22 08/14/20 21:21 Preop Diagnosis: IUP Proposed Procedure: Epidural Familial anesthetic complications: Hypotension after last epidurals (causing lightheadednes and perioral tingling) Was Beta Franchesca taken within 24 hours: N/A Was Clonidine taken within 24 hours: N/A Last intake: Recent intake of tuna and catfish Social: Social History: Tobacco and No alcohol Exam: Pre-Anes Outpt Exam: alert, oriented x 3, clear to auscultation bilaterally and regular rate & rhythm Airway: Cervical ROM: WNL MP: 4 Dentition: Full and Other (poor den tition) Anesthetic Plan: ASA status: 3 Anesthesia: Regional (specify below) (epidural) Risk of > 500 ml blood loss (7ml/kg in children): No Meds/Allergies Current Medications: Current Medications Generic Name Dose Route Start Last Admin Trade Name Freq PRN Reason Stop Dose Admin Fentanyl 25 - 100 mcg 08/14/20 19:15 08/14/20 19:59 Fentanyl 50 Mcg/ Ml Inj 2ml IVP 25 mcg Q1H PRN Administration SEVERE PAIN Dextrose/Lactated Ringer's 1,000 mls @ 125 m ls/hr 08/14/20 19:15 08/14/20 20:10 Dextrose 5%-Lact ated Ringers IV 0 mls/hr .Q8H DIANE Infusion Lactated Ringer's 1,000 mls @ 999 m ls/hr 08/14/20 20:02 08/14/20 20:10 Lactated Ringers IV 999 mls/hr .Q1H1M PRN Administration See label comment s PFSH Anesthesia PFSH: Medical History Anxiety and depression Anxiety during Depression during Surgical History History of tonsillectomy and adenoidectomy Family History Mother Diabetes Unknown Heart disease Maternal side in general Thyroid disease Maternal side in general Family/Other Ovarian cancer Maternal Aunt-- dx age unknown Denies family history of Colon cancer Breast cancer Bleeding disorder Hypertension Uterine cancer Stroke Social History Additional social history: - Tobacco use: smokes 0.25 PPD; this is down from 1-1.5 ppd Alcohol use: no longer drinking during as of 04/16/2020, had been having couple glasses of wine Drug use: denies Data Anesthesia CBC & Chem 7: 08/14/20 19:30 Other Labs: Laboratory Results - last 48 hr 08/14/20 08/14/20 19:30 20:00 WBC 14.2 H RBC 4.32 Hgb 12.5 Hct 38.4 MCV 88.9 MCH 28.9 MCHC 32.6 RDW 14.3 Plt Count 272 MPV 9.8 Neut % (Auto) 70.4 Lymph % (Auto) 21.4 Mcduffie % (Auto) 5.6 Eos % (Auto) 1.3 Baso % (Auto) 0.4 Neut # (Auto) 9.98 H Lymph # (Auto) 3.0 Mcduffie # (Auto) 0.8 Eos # (Auto) 0.2 Baso # (Auto) 0.1 Nucleated RBC % (auto) 0 Nucleated RBCs # 0.0 Urine Opiates Screen Negative Ur Barbiturates Screen Negative Ur Phencyclidine Scrn Negative Ur Amphetamines Screen Negative U Benzodiazepines Scrn Negative Urine Cocaine Screen Negative U Marijuana (THC) Screen Negative Cardiac Studies: No Data to Display
--- NOTE | 2020-08-14 21:30 | ANES.PROC ---
Anesthesia Procedures Procedure/Date: 08/14/20 Epidural: Time Out Performed: Yes Consents Signed: Procedure Consent and NPO Consent Consent: requested by attending/covering physician, from patient, risks and benefits reviewed and patient agrees to proceed Lumbar Level: L3-L4 Epidural position: sitting Epidural procedure: sterile prep of area, 1% lidocaine to numb the area, 18 g needle, negative for paresthesia passed, neg for paresthesia, test dose given (5 cc (divided dose)), 1.5% xylocaine 1:200k epi, placed PCEA, no systemic response, sterile dressing applied, L.U.D. no apparent complications and 0.2% Ropiavacaine @ mls/hr (10) Additional Comments: SHENG at 5 cm, threaded to 11 cm at skin. Decreased pump settings to 10 ml/hr, 3 cc bolus q 10 minutes (max of 3 boluses per hour). Did not bolus pump d/t hx of hypotension. Pain of contraction decreased from 8 to 6 out of 10. Slight drop in BP elicited (down to systolics of 111 from 120s). If patient remains uncomfortable and BP holds, may increase pump bolus setting to 5 cc q 10 minutes.
[2020-08-15] VITALS (76 sets, daily range): BP systolic 89–150; BP diastolic 51–93; PULSE 62–96; RESP 15–25; TEMP 36.2–37.1; O2SAT 94–98
[2020-08-15] MEDS: ondansetron 2 mg/ML SDV 2 mL 4 MG IVP ×3 (00:27→22:06)
[2020-08-15] MEDS: dextrose 5%-lactated ringers 1,000 ML 125 ML IV ×3 (05:14→22:54)
[2020-08-15] MEDS: oxytocin 30 UNIT/500 ML BAG IV (08:00)
--- NOTE | 2020-08-15 08:05 | P.PN_ITS ---
Vitals/I&O/Wt Last Vital Signs Temp 98.0 F 08/15/20 07:49 Pulse 78 08/15/20 07:52 Resp 15 08/15/20 07:49 BP 105/59 08/15/20 07:52 Pulse Ox 97 08/15/20 07:49 08/14/20 08/15/20 08/15/20 22:59 06:59 14:59 Intake Total 27.083 / .083 100 / 888.828 6043 / 1000 Output Total 650 / 650 Balance 27.083 / .083 -550 / -427.986 8850 / 1000 Weight last 48 hrs Weight 87.997 kg Physical Exam Narrative: EXAM NARRATIVE: GA: Alert and oriented ?3. Lungs: Clear to auscultation bilaterally. Heart: Regular rhythm and rate. Abdomen: Gravid, full the height equals dates, nontender. TIMBER SPOTTER: SVE; dilation: 6 to 7 cm, effacement: 80%, station: -5, presentation: vx, membranes: Intact. Extremities: no edema, no cyanosis, no calves pain. heart tracing: Basal rate: 140 bpm, Variability: Moderate, Accelerations: Present, Decelerations: Absent, Contraction: Every 4 minutes. Urinary Catheter Management^: Block Latex: Cath Placed During This Visit: yes Reason for Continuing Indwelling Catheter: Other Urinary Catheter Date of Insertion: 08/14/20 Urinary Catheter Time of Insertion: : Data : 08/14/20 19:30 A&P Assessment and plan (1) Term : Mrs. Ko with slow progression of labor, will start with oxytocin augmentation. heart tracing category 1. Vertex presentation high. AROM not recommended at this time due to the risks of cord prolapse. Plan: Continuous monitoring. Anticipate vaginal delivery Status: Acute (2) Poor weight gain of : Status: Acute Qualifiers: Trimester: third trimester Qualified Code(s): O26.13 - Low weight gain in , third trimester (3) Cholelithiasis affecting in third trimester, antepartum: Status: Acute (4) Varicose veins of left leg with edema: Status: Acute (5) Tobacco use in : Status: Acute Qualifiers: Trimester: third trimester Qualified Code(s): O99.333 - Smoking (tobacco) complicating , third trimester (6) Anxiety during : Status: Acute (7) Depression during : Status: Acute Qualifiers: Trimester: third trimester Qualified Code(s): O99.343 - Other mental disorders complicating , third trimester; F32.9 - Major depressive disorder, single episode, unspecified Attestations Medical Necessity Statement*: In my professional opinion per admitting diagnosis Coding Level of Care Code Acute [employer] Products Sales Representative for Chg Fwd Diagnoses Term Z34.90 Poor weight gain of O26.13 Trimester: third trimester Cholelithiasis affecting in third trimester, antepartum O26.613; K80 .20 Varicose veins of left leg with edema I83.892 Tobacco use in O99.333 Trimester: third trimester Anxiety during O99.340; F41.9 Depression during O99.343; F32.9 Trimester: third trimester
[2020-08-15] MEDS: fentaNYL 50 mcg/mL INJ 2mL IVP ×2 (11:59→13:14)
--- NOTE | 2020-08-15 12:59 | PM.PN ---
Subjective Subjective: Interval history: Ms. Ko is a 34 year old established patient with LMP of 11/24/2019, DUSTIN 08/30/2020, with EGA 37+5. Admitted in active labor. Refers epidural not working well and feel contractions more. Vitals/I&O/Wt Last Vital Signs Temp 97.3 F L 08/15/20 08:13 Pulse 77 08/15/20 12:50 Resp 20 H 08/15/20 11:59 BP 142/85 08/15/20 12:50 Pulse Ox 97 08/15/20 07:49 08/14/20 08/15/20 08/15/20 22:59 06:59 14:59 Intake Total .083 / .083 100 / 241.906 3907.567 / 1020.567 Output Total 650 / 650 Balance 27.083 / 27.083 -550 / -874.644 5005.567 / 1020.567 Weight last 48 hrs Weight 87.997 kg Physical Exam Narrative: EXAM NARRATIVE: GA: Alert and oriented ?3. Lungs: Clear to auscultation bilaterally. Heart: Regular rhythm and rate. Abdomen: Gravid, full the height equals dates, nontender. SALES RELATIONSHIP MANAGER: SVE; dilation: 9 cm, effacement: 80%, station: -3, presentation: vx, membranes: AROM clear. Extremities: no edema, no cyanosis, no calves pain. heart tracing: Basal rate: 140 bpm, Variability: Moderate, Accelerations: Present, Decelerations: Absent, Contraction: q3. Urinary Catheter Management^: Block Latex: Cath Placed During This Visit: yes Reason for Continuing Indwelling Catheter: Other Urinary Catheter Date of Insertion: 08/14/20 Urinary Catheter Time of Insertion: 22:27 Data : 08/14/20 19:30 A&P Assessment and plan (1) Term : Mrs. Ko with slow progression of labor, oxytocin augmentation increased to high dose protocol. heart tracing category 1. scalp stimulation reassuring. AROM with clear fluids. Plan: Continuous monitoring. Anticipate vaginal delivery Status: Acute (2) Poor weight gain of : Status: Acute Qualifiers: Trimester: third trimester Qualified Code(s): O26.13 - Low weight gain in , third trimester (3) Cholelithiasis affecting in third trimester, antepartum: Status: Acute (4) Varicose veins of left leg with edema: Status: Acute (5) Tobacco use in : Status: Acute Qualifiers: Trimester: third trimester Qualified Code(s): O99.333 - Smoking (tobacco) complicating , third trimester (6) Anxiety during : Status: Acute (7) Depression during : Status: Acute Qualifiers: Trimester: third trimester Qualified Code(s): O99.343 - Other mental disorders complicating , third trimester; F32.9 - Major depressive disorder, single episode, unspecified Attestations Medical Necessity Statement*: In my professional opinion per admitting diagnosis Coding Level of Care Code Acute Real Estate Portfolio Manager for Chg Fwd Diagnoses Term Z34.90 Poor weight gain of O26.13 Trimester: third trimester Cholelithiasis affecting in third trimester, antepartum O26.613; K80.20 Varicose veins of left leg with edema I83.892 Tobacco use in O99.333 Trimester: third trimester Anxiety during O99.340; F41.9 Depression during O99.343; F32.9 Trimester: third trimester
--- NOTE | 2020-08-15 13:42 | PM.MISC ---
Miscellaneous Note Purpose of Documentation: Epidural adminsitration Note: Patient stating her epidural isn't working well anymore. L worse than right side. States she had unilateral epidural with her son. Administered bupivicaine 0.25% 7 cc w/fentanyl 100 mcg via epidural with patient stating her following contraction was Much much better. Also pressed bolus on pump. Nurse had increased pump to 5 cc from 3 cc less than 1 hr previously.
--- NOTE | 2020-08-15 15:11 | P.PN_ITS ---
Subjective Subjective: Interval history: Ms. Ko is a 34 year old established patient with LMP of 11/24/2019, DUSTIN 08/30/2020, with EGA 37+5. Admitted in active labor. Feeling more confortable after seen by anesthesiologist. Vitals/I&O/Wt Last Vital Signs Temp 97.3 F L 08/15/20 08:13 Pulse 62 08/15/20 14:50 Resp 25 H 08/15/20 13:14 BP 107/59 08/15/20 14:50 Pulse Ox 97 08/15/20 07:49 08/15/20 08/15/20 08/15/20 06:59 14:59 22:59 Intake Total 100 / 420.094 9083.633 / 2144.633 Output Total 650 / 650 700 / 700 Balance -550 / -407.961 9654.633 / 1444.633 Weight last 48 hrs Weight 87.997 kg Physical Exam Narrative: EXAM NARRATIVE: GA: Alert and oriented ?3. Lungs: Clear to auscultation bilaterally. Heart: Regular rhythm and rate. Abdomen: Gravid, full the height equals dates, nontender. CONTROL INSPECTOR: SVE; dilation: 9 cm, effacement: 80%, station: -3, presentation: vx, membranes: AROM clear. Extremities: no edema, no cyanosis, no calves pain. heart tracing: Basal rate: 140 bpm, Variability: Moderate, Accelerations: Present, Decelerations: Absent, Contraction: q3-4 Urinary Catheter Management^: Block Latex: Cath Placed During This Visit: yes Reason for Continuing Indwelling Catheter: Other Urinary Catheter Date of Insertion: 08/14/20 Urinary Catheter Time of Insertion: 22:27 Data : 08/14/20 19:30 A&P Assessment and plan (1) Term : Mrs. Ko with slow progression of labor, oxytocin augmentation increased to high dose protocol. heart tracing category 1. scalp stimulation reassuring. AROM with clear fluids. She had been on 9 cm dialtion over 4 hours without any further progress. Her and her counseled regarding the failure to progress. delivery recommended and the agree to proceed with delivery. Plan: Status: Acute (2) Poor weight gain of : Status: Acute Qualifiers: Trimester: third trimester Qualified Code(s): O26.13 - Low weight gain in , third trimester (3) Cholelithiasis affecting in third trimester, antepartum: Status: Acute (4) Varicose veins of left leg with edema: Status: Acute (5) Tobacco use in : Status: Acute Qualifiers: Trimester: third trimester Qualified Code(s): O99.333 - Smoking (tobacco) complicating , third trimester (6) Anxiety during : Status: Acute (7) Depression during : Status: Acute Qualifiers: Trimester: third trimester Qualified Code(s): O99.343 - Other mental disorders complicating , third trimester; F32.9 - Major depressive disorder, single episode, unspecified Attestations Medical Necessity Statement*: My professional opinion per admitting diagnosis Coding Level of Care Code Acute Police Communications Operator for Chg Fwd Diagnoses Term Z34.90 Poor weight gain of O26.13 Trimester: third trimester Cholelithiasis affecting in third trimester, antepartum O26.613; K80.20 Varicose veins of left leg with edema I83.892 Tobacco use in O99.333 Trimester: third trimester Anxiety during O99.340; F41.9 Depression during O99.343; F32.9 Trimester: third trimester
[2020-08-15] MEDS: famotidine 20 mg/2 mL INJ IVP (15:16)
[2020-08-15] MEDS: lactated ringers 1,000 ML 999 ML IV (15:16)
[2020-08-15] MEDS: citric acid-sodium citrate 30 mL UDC PO (15:16)
[2020-08-15] MEDS: metoclopramide 5 mg/mL SDV 2 mL 10 MG IVP (15:16)
--- NOTE | 2020-08-15 17:20 | PM.OP ---
Operative Report Date of procedure: August 15, 2020 Pre-op Diagnosis: Term IUP, failure to progress Post-op diagnosis: same Post-op Diagnosis: Uterine rupture posterior left side Post-op Findings: Uterine rupture posterior left side lower segment Procedure Done: Low transverse delivery. Uterine rupture repair Surgeon: Edmundo Blanco MD Anesthesia: General and Other (Epidural) Estimated blood loss (mL): 800 Condition: stable Disposition: PACU Procedure: After assuring informed consent, the patient was taken to the operating room and anesthesia was initiated. She was placed in the dorsal supine position with a left lateral tilt. The abdomen was prepped and draped in the usual sterile manner. A time-out procedure was performed. Epidura block was tested and the patient referred filing test at midline. Waited several minutes, the the patient did not feel the skin test and proceeded to start the delivery. A Pfannenstiel skin incision was made with the scalpel and carried through to the underlying layer of fascia with the Bovie. The fascia was nicked in the midline and the incision extended laterally with the Rosales scissors. The superior aspect of the fascial incision was then grasped with Bina clamps and elevated and the underlying rectus muscle dissected off bluntly. Attention was then turned to the inferior aspect of the incision which, in similar fashion, was grasped and tented up with Bina clamps and the rectus muscle dissected bluntly. The rectus muscles were then in the midline and the peritoneum identified, tented up and entered sharply with Metzenbaum scissors. The patietn started to complain of pain and anesthesia had to initiate general anesthesia. The peritoneal incision was then extended superiorly and inferiorly with good visualization of the bladder. [id number] ml of blood was noted in the abdominal cavity The Matt O retractor was then inserted and the vesicouterine peritoneum identified, grasped with pickups and entered sharply with Metzenbaum scissors. This incision was then extended laterally and the bladder flap created digitally. The uterus incised in a low transverse fashion with the scalpel. The uterine incision was then extended with the bandage scissors. The was then delivered in the cephalic presentation atraumatically. The nose and the mouth were suctioned with bulb and the cord clamped and cut. The was handed over to the brakeshoe repairer and nursing personnel. The cord was normal and had three vessels. Amniotic fluid was clear. The placenta was then removed manually and the uterus exteriorized and cleared of all clots and debris. The uterine incision was repaired with 0 Vicryl in a running-locked fashion. A second layer of the same suture was used to obtain excellent hemostasis. While cleaning blood clots from the gutters and posterior cul-de-sac a uterine rupture over approximately 1 to 2 cm was noted at the posterior lower segment left side of the uterus, was actively bleeding. The rupture was repair in 2 layers with O- Vicryl. After the repair the gutters were cleared of all clots. The uterus was then returned to the abdomen. The rectus muscles were approximated with 3-0 chromic gut.. The fascia was reapproximated with 0 Vicryl in an interrupted running fashion. The skin was closed with Insorb?s subcuticular absorbable audrey. Exparel was used at the incision site for pain management. The patient tolerated the procedure well. The sponge, lap and needle counts were correct times three. The patient was given Ancef 2 gm intravenously immediately after delivery of the . Associated Problem List Diagnoses (1) Term delivered: (2) delivery delivered: (3) Uterine rupture during labor:
--- NOTE | 2020-08-15 17:30 | ANE.PACU2 ---
Inpatient post-anesthesia follow up: Airway intact: Yes Vital signs: Temperature 98.6 F Pulse Rate 87 Respiratory Rate 16 Blood Pressure 103/62 Pulse Oximetry 94 Oxygen Delivery Me thod Room Air Oxygen Flow Rate Fraction of Inspir ed Oxygen Hydration adequate: Yes Nausea and vomiting: No Pain level: 3 Mental status: Baseline
[2020-08-15] MEDS: HYDROmorphone 1 mg/mL INJ 1 mL IVP ×2 (18:07→21:49)
[2020-08-15 21:07] LABS: Hematocrit 31.5 % (37.0-47.0); Hemoglobin 10.4 g/dL (11.5-15.3); Mean Corpuscular Hemoglobin 29.6 pg (28.0-34.0); Mean Corpuscular Volume 89.7 fL (81-99); Mean Platelet Volume 9.5 fL (7.4-10.4); Platelet Count 234 10^3/cmm (130-400); Red Blood Count 3.51 10^6/uL (4.1-5.3); Red Cell Distribution Width 14.3 % (12.1-15.1); White Blood Count 22.5 10^3/uL (4.0-10.0)
[2020-08-15] MEDS: trazodone 50 mg Tablet PO (21:50)
[2020-08-15] MEDS: pantoprazole DR 40 mg Tablet PO (21:51)
[2020-08-15] MEDS: fluoxetine 20 mg Capsule 40 MG PO (21:51)
--- NOTE | 2020-08-15 23:30 | PC.NURSE ---
AT 2310, PATIENT STATED SHE WAS WILLING TO TRY AND GET OUT OF BED. MORTGAGE LOAN COMPUTATION CLERK ASSISTED PATIENT TO BEDSIDE CHAIR. PATIENT STAYED IN CHAIR FOR APPROXIMATELY TEN MINUTES, THEN REQUESTED TO BE ASSISTED BACK TO BED. PATIENT STOOD AND AMBULATED TO BED WITH ASSISTANCE FROM MORTGAGE LOAN COMPUTATION CLERK.
[2020-08-16] VITALS (9 sets, daily range): BP systolic 97–106; BP diastolic 57–78; PULSE 82–100; RESP 15–18; TEMP 36.9–37; O2SAT 93–96
[2020-08-16] MEDS: oxyCODONE-APAP 5-325 mg Tablet PO ×4 (04:25→21:37)
[2020-08-16 05:38] LABS: Hemoglobin 9.1 g/dL (11.5-15.3); Mean Corpuscular HGB Conc 32.5 g/dL (30.0-36.0); Mean Corpuscular Hemoglobin 29.4 pg (28.0-34.0); Mean Corpuscular Volume 90.3 fL (81-99); Mean Platelet Volume 9.5 fL (7.4-10.4); Platelet Count 211 10^3/cmm (130-400); Red Cell Distribution Width 14.4 % (12.1-15.1); White Blood Count 15.8 10^3/uL (4.0-10.0)
[2020-08-16] MEDS: dextrose 5%-lactated ringers 1,000 ML 125 ML IV (07:35)
[2020-08-16] MEDS: docusate sodium 100 mg Capsule PO ×2 (09:32→19:08)
[2020-08-16] MEDS: ferrous sulfate EC 325 mg Tablet PO ×2 (09:32→19:08)
[2020-08-16] MEDS: ketorolac 30 mg/mL INJ IVP ×3 (09:33→21:37)
[2020-08-16] MEDS: prenatal vitamin Capsule 1 CAP PO (09:33)
--- NOTE | 2020-08-16 10:53 | P.PN_ITS ---
INDUSTRIAL CONTROLS TECHNICIAN Subjective Subjective: Interval history: The patient is doing well this am. Her pain is well controlled. Her hemoglobin has been stable. baby is doing well. Labor: Station: -1 Amniotic Membrane Status: Leaking Monitor Mode: External Contraction Pattern: Regular Status: Category I Vitals/I&O/Wt Last Vital Signs Temp 98.5 F 08/16/20 07:39 Pulse 85 08/16/20 07:39 Resp 16 08/16/20 07:39 BP 99/61 08/16/20 07:39 Pulse Ox 94 08/16/20 07:39 08/15/20 08/16/20 08/16/20 22:59 06:59 14:59 Intake Total 3454.8 / 5599.433 1000 / 6599.433 358.333 / 358.333 Output Total 1309 575 / 2585 700 / 700 Balance 2144.8 / 3589.433 425 / 4014.433 -341.667 / -341.667 Weight last 48 hrs Weight 194 lb Physical Exam Const: COMMON NORMALS: no acute distress, average body habitus, patient orient ed x3, no limitations, healthy appearing, alert and well nourished GENERAL APPEARANCE: cooperative, comfortable, well kempt and well developed ORIENTATION/CONSCIOUSNESS: Yes awake, Yes oriented to person, Yes oriented to place and Yes oriented to time Resp: COMMON NORMALS: normal respiratory effort EFFORT & INSPECTION: Yes able to speak in complete sentences GI: COMMON NORMALS: Soft to palpation and non-tender PALPATION: Yes Soft to palpation Extremity: COMMON NORMALS: no clubbing, cyanosis or edema Neuro: COMMON NORMALS: patient oriented x3 SENSORIUM/ORIENTATION: Yes alert, Yes oriented to person, Yes oriented to place and Yes oriented to time Psych: APPEARANCE: Yes well kempt Urinary Catheter Management^: Block Latex: Cath Placed During This Visit: yes, but has since been removed by the nurse Reason for Continuing Indwelling Catheter: Decision to DC Catheter Urinary Catheter Date of Insertion: 08/14/20 Urinary Catheter Time of Insertion: 22:27 Date Urinary Catheter Removed: 08/16/20 Time Urinary Catheter Discontinued: 10:20 Data : 08/16/20 05:32 A&P Assessment and plan (1) Uterine rupture during labor: doing well postoperatively and no evidence of continued hemorrhage continue to monitor swich from IV to oral pain meds ambulate today regular diet Status: Acute Attestations Medical Necessity Statement*: the patient has already been here two midnights. expect 1-2 more nights. Coding Level of Care Code Acute Morning Show Host for Mariano Jaimes Diagnoses Uterine rupture during labor O71.1
--- NOTE | 2020-08-16 21:30 | PC.NURSE ---
DFS worker Parul Jarrett at bedside with family.
[2020-08-16] MEDS: fluoxetine 20 mg Capsule 40 MG PO (21:38)
[2020-08-16] MEDS: pantoprazole DR 40 mg Tablet PO (21:39)
[2020-08-16] MEDS: trazodone 50 mg Tablet PO (21:40)
[2020-08-17 03:58] VITALS: BP 110/74; PULSE 102; RESP 16; TEMP 36.8; O2SAT 96
[2020-08-17] MEDS: ketorolac 30 mg/mL INJ IVP (03:58)
[2020-08-17] MEDS: prenatal vitamin Capsule 1 CAP PO (09:12)
[2020-08-17] MEDS: ferrous sulfate EC 325 mg Tablet PO (09:12)
[2020-08-17] MEDS: ibuprofen 800 mg tablet PO (09:12)
[2020-08-17] MEDS: docusate sodium 100 mg Capsule PO (09:13)
[2020-08-17 09:16] VITALS: BP 102/65; PULSE 102; RESP 18; TEMP 36.9
--- NOTE | 2020-08-17 10:07 | P.DS_ITS ---
Discharge Providers LITHOGRAPH PRESS OPERATOR TINWARE Date of Admission: 08/14/20 18:52 Date of Discharge: 08/17/20 Attending Provider at Admission: Edmundo Blanco MD Attending Provider at Discharge: Hira Hannah MD Primary LITHOGRAPH PRESS OPERATOR TINWARE: Edmundo Blanco MD Diagnoses at Discharge Discharge Diagnosis (1) Uterine rupture during labor: Status: Acute (2) Acute blood loss anemia: Status: Acute (3) Mental disorder in , delivered: Status: Acute (4) Rh negative, delivered, current hospitalization: Status: Acute Reason for Visit Reason for Visit: Abdominal pain Hospital Course Hospital Course Patient is a 34-year-old female 5, para 3-0-1-3 with an LMP of 11/24/2019 and an EDC of 08/30/2020 based on LMP and consistent with a 20-week ultrasound, which placed her at 37-5/7 weeks gestation at the time of admission on 08/14/2020. She presented to labor and delivery in the evening of 08/14/2020 with abdominal pain. She was found to be in labor. She reported to be 4 to 5 cm dilated with intact membranes. She was monitored through the night and made slow progression. By 03:11 she was 7 to 8 cm dilated and by 09:00 she was essentially unchanged. As a result Pitocin augmentation was started. She eventually progressed to 9 cm dilation, but did not progress any further. As a result she was taken for a primary section. A primary low transverse section was performed by Dr. Blanco. During the , she was found to have a a 1 to 2 cm rupture on the posterior left lower side of the uterus. She had been found to have blood within the abdomen upon initial entry of the abdominal cavity. This was repaired at the time of her . On postoperative day 1, she was reportedly doing well. Her pain was well controlled and was switched to oral pain medications later in the day. She was not passing flatus at the time. Block catheter had been removed and she was urinating without difficulty. She was afebrile with stable vital signs. On postoperative day 2, she was reporting doing well. She states that her pain was well controlled on oral medications. She denied lightheadedness or dizziness with ambulation. She denied shortness of breath or chest pains. She denied nausea and vomiting and was tolerating a regular diet this morning. He was reporting passing flatus. She denied problems with urination. She reported that her bleeding had slowed. She was bottlefeeding. Physical exam: See below Plan After surgery, she was found to be anemic. Hemoglobin had dropped from 12.5 on admission to 10.4 after surgery and was 9.1 the following morning (postoperative day 1). She is currently asymptomatic with this. Plan is to send her home with oral iron to take in addition to the vitamins. She will also be continued on fluoxetine, trazodone, and quetiapine for her depression and anxiety. Discharge to home. Discharge instructions discussed with patient. Patient to follow-up in the office in 2 and 6 weeks following section. She is to be scheduled for a laparoscopic sterilization as an outpatient. Information Peripartum Data: Delivery Method: Physical Exam Const: COMMON NORMALS: no acute distress, alert and well nourished GENERAL APPEARANCE: well developed NUTRITIONAL APPEARANCE: overweight ORIENTATI ON/CONSCIOUSNESS: Yes oriented to person, Yes oriented to place and Yes oriented to time Resp: COMMON NORMALS: normal respiratory effort and clear to auscultation bilaterally AUSCULTATION: clear to auscultation bilaterally Cardio: COMMON NORMALS: regular rate, regular rhythm, No gallops present (Cardio) and No rub (Cardio) RATE: regular rate RHYTHM: regular rhythm PERIPHERAL PULSES: posterior tibial pulses present GI: COMMON NORMALS: Soft to palpation, No hepatosplenomegaly present and no masses (Except for uterus) INSPECTION: Yes incision (Clean dry and intact with absorbable audrey and skin glue.) AUSCULTATION: Yes normoactive bowel sounds PALPATION: Yes Soft to palpation, Yes Tenderness to palpation present (GI) (Tender lower abdomen), Yes No hepatosplenomegaly present and No Hernia present : EXTERNAL FEMALE EXAM: No Hernia present Extremity: COMMON NORMALS: no calf tenderness NARRATIVE EXTREMITY EXAM: Trace to 1+ lower extremity edema bilaterally. Neuro: SENSORIUM/ORIENTATION: Yes alert, Yes oriented to person, Yes oriented to place and Yes oriented to time Psych: COMMON NORMALS: normal affect MOOD & AFFECT: Yes euthymic mood Skin: COMMON NORMALS: no rashes or lesions noted GENERAL SKIN EXAM: no rashes or lesions noted Urinary Catheter Management^: Block Latex: Cath Placed During This Visit: yes, but has since been removed by the nurse Reason for Continuing Indwelling Catheter: Decision to DC Catheter Urinary Catheter Date of Insertion: 08/14/20 Urinary Catheter Time of Insertion: 22:27 Date Urinary Catheter Removed: 08/16/20 Time Urinary Catheter Discontinued: 10:20 Discharge Data Data Completed and Pendin08/14/2020 CBC: WBC 14.2, hemoglobin 12.5, hematocrit 38.4, platelet 272,000 Urine drug screen: Negative 08/15/2020 CBC: WBC 22.5, hemoglobin 10.4, hematocrit 31.5, platelet 234,000 08/16/2020 CBC: WBC 15.8, hemoglobin 9.1, hematocrit 28.0, platelet 211,000 Pending at discharge Category Date Time Status Miscellaneous Kristan t Routine Lab 08/16/20 20:35 Received Labs from last 24 hours 08/16/20 08/14/20 20:35 19:30 Misc Test Referenc e Pending Blood Type O Negative Rho(D) Type Negative / 0 Antibody Screen Negative Vitals: Last Vital Signs Temp 98.4 F 08/17/20 09:16 Pulse 102 H 08/17/20 09:16 Resp 18 08/17/20 09:16 BP 102/65 08/17/20 09:16 Pulse Ox 96 08/17/20 03:58 Discharge Plan Discharge Patient Disposition: Home Condition: Stable Prescriptions: New oxycodone-acetaminophen 5-325 mg Tablet 1 tab PO Q6H PRN (Reason: Moderate To Severe Pain) Qty: 20 RF: 0 ibuprofen 800 mg Tablet 800 mg PO TID PRN (Reason: pain) Qty: 40 RF: 0 ferrous sulfate 325 mg (65 mg iron) Tablet,Delayed Release (Dr/Ec) 325 mg PO BID Qty: 60 RF: 1 Continued fluoxetine [Prozac] 40 mg capsule 40 mg PO BEDTIME RF: 0 pantoprazole [Protonix] 40 mg tablet,delayed release (DR/EC) 40 mg PO BEDTIME RF: 0 prenat.vits,cristian,vtj-irlc-ujavv Tablet 1 tab PO BEDTIME RF: 0 trazodone 50 mg tablet 50 mg PO BEDTIME RF: 0 quetiapine [Seroquel] 100 mg tablet 400 mg PO BEDTIME RF: 0 albuterol sulfate 90 mcg/actuation HFA aerosol inhaler 2 puff inhalation Q6H PRN (Reason: shortness of breath or wheezing) Qty: 8.5 RF: 0 fluticasone propionate [Flonase Allergy Relief] 50 mcg/actuation spray,suspension 1 spray intranasal BID PRN (Reason: nasal congestion) Qty: 9.9 RF: 0 Claritin 10 mg Tablet 10 mg PO DAILY PRN (Reason: Allergy Symptoms) RF: 0 Discontinued clotrimazole 1 % cream 1 appful vaginal DAILY 7 Days Qty: 45 RF: 0 Tylenol Extra Strength 500 mg Tablet 1,000 - 3,000 mg PO PRN RF: 0 Discharge Orders: Discharge Order (Routine); Ordered 08/17/20 Ordered By: Hira Hannah Referrals: Edmundo Blanco MD [Physician] - 1-3 days (Call Wednesday to schedule your incision check and post- check up with Dr. Blanco. Postoperative appointment in 2 weeks and check in 6 weeks) Discharge Diet: Regular Discharge Activity: Limit activity as instructed Patient Instructions: Pre-eclampsia and Eclampsia (DC), Bleeding (DC), OB WHC, OB Discharge Report, OB Food/Drug Interaction Guide, Opioid Safety, OB Home Care, OB Proud Parent Packet, Depression Discharge Attestations LITHOGRAPH PRESS OPERATOR TINWARE Time Spent in Discharge Care*: less than 30 min Coding Level of Care Code Acute Cnc Cutting Operator for Chg Fwd Diagnoses Uterine rupture during labor O71.1 Acute blood loss anemia D62 Mental disorder in , delivered O99.344 Rh negative, delivered, current hospitalization O26.899; Z67.91
[2020-08-17 11:27] VITALS: BP 102/65; PULSE 102; RESP 18; TEMP 36.9
== END 2020-08-17 11:25 | disposition home or self-care (01) | DRG 787 ==
LOC: OPOB 18:53 → OBGYN 19:03
PROVIDERS: Obstetrics & Gynecology; Admitting Provider Obstetrics & Gynecology; Visit Provider Obstetrics & Gynecology
PROC: 10D00Z1 Extraction of Products of Conception, Low, Open Approach (ICD-10-PCS; CPT 59514; principal; 2020-08-15 15:35)
DX: O71.1 Rupture of uterus during labor (principal); O36.0930 Maternal care for other rhesus isoimmunization, third trimester, not applicable or unspecified; D62 Acute posthemorrhagic anemia; O99.344 Other mental disorders complicating childbirth; O99.334 Smoking (tobacco) complicating childbirth; F17.210 Nicotine dependence, cigarettes, uncomplicated; O99.214 Obesity complicating childbirth; O99.62 Diseases of the digestive system complicating childbirth; K80.20 Calculus of gallbladder without cholecystitis without obstruction; O87.4 Varicose veins of lower extremity in the puerperium; O99.02 Anemia complicating childbirth; Z3A.37 37 weeks gestation of pregnancy; Z37.0 Single live birth; F41.8 Other specified anxiety disorders; O32.4XX0 Maternal care for high head at term, not applicable or unspecified; O75.89 Other specified complications of labor and delivery; G47.00 Insomnia, unspecified
CPT/HCPCS: 36415; 51702; 59409; 80306; 85025; 85027; 85460; 86850; 86900; 90384; 99211; C9290; J0690; J1170; J1885; J2274; J2370; J2405; J2765; J2795; J3010; J3490; J7030

== ENCOUNTER → 2020-09-27 10:16 | Outpatient (BNVA) | payer MEDICAID, SELFPAY | PROVIDERS: Visit Provider Obstetrics & Gynecology | DX: Z30.2 Encounter for sterilization (principal) | CPT/HCPCS: 87635 ==

== ENCOUNTER 2020-10-02 12:17 | Day surgery (SDC) | payer MEDICAID, SELFPAY ==
[2020-09-30 10:27] VITALS: BMI 33.5
--- NOTE | 2020-09-30 10:55 | ANES.PREANE2 ---
Pre-Anesthetic Assessment Pre-Anesthetic Assessment: Height/Weight: Height 1.6 m Weight 85.729 kg Preop Diagnosis: Term IUP, failure to progress Proposed Procedure: Operation Date: 10/02/20 14:25 Proposed Procedures p Avery Yi,Removal of Tubes Sterilization 51956 z30.2(Not Applicable) - Edmundo Blanco MD Was Beta Franchesca taken within 24 hours: N/A Was Clonidine taken within 24 hours: N/A Social: Social History: Tobacco and No alcohol Exam: Pre-Anes Outpt Exam: alert, oriented x 3 and regular rate & rhythm Airway: Submandibular: WNL Cervical ROM: WNL MP: 2 Dentition: Chipped Additional comments: poor dentition Pulmonary: Pulmonary: COPD CV/HEM: CV/HEM: Anemia GI: GI: GERD Metabolic: Metabolic: Morbid obesity Neuropsych: Neuropsych: Anxiety and Depression Anesthetic Plan: ASA status: 3 Anesthesia: General Risk of > 500 ml blood loss (7ml/kg in children): No PFSH Anesthesia PFSH: Medical History Aftercare following surgery of the genitourinary system Anxiety and depression Anxiety during Depression during Request for sterilization Surgical History H/O section 08/15/2020- low transverse delivery, performed by Dr. Blanco at [facility] History of tonsillectomy and adenoidectomy Family History Mother Diabetes Unknown Heart disease Maternal side in general Thyroid disease Maternal side in general Family/Other Ovarian cancer Maternal Aunt-- dx age unknown Denies family history of Colon cancer Breast cancer Bleeding disorder Hypertension Uterine cancer Stroke Social History Additional social history: - Tobacco use: smokes 0.25 PPD; this is down from 1-1.5 ppd Alcohol use: no longer drinking during as of 04/16/2020, had been having couple glasses of wine Drug use: denies Data Anesthesia Cardiac Studies: No Data to Display
[2020-10-02] VITALS (7 sets, daily range): BP systolic 106–122; BP diastolic 72–86; PULSE 86–90; RESP 14–24; TEMP 36.3–36.7; O2SAT 93–97
[2020-10-02] MEDS: sodium chloride 0.9% 1,000 ML 30 ML IV (13:14)
--- NOTE | 2020-10-02 13:17 | ANES.PAUD2 ---
Pre-Anesthetic Update Pre-Anesthetic Assessment: Date of Surgery/Procedure: 10/02/20 Preop Diagnosis: Term IUP, failure to progress Proposed Procedure: Operation Date: 10/02/20 14:00 Proposed Procedures p Avery Isibinu,Removal of Tubes Sterilization 33877 z30.2(Not Applicable) - Edmundo Blanco MD Any changes to Pre-Anesthetic Assessment?: No Last Intake: Intake Last Liquid Date 10/01/20 Last Liquid Time 23:59 Last Solid Date 10/01/20 Last Solid Time 23:59 Vitals: Temperature 98.1 F 10/02/20 12:56 Temperature Source Temporal Artery S can 10/02/20 12:56 Pulse Rate 90 10/02/20 12:56 Respiratory Rate 18 10/02/20 12:56 Blood Pressure 118/77 10/02/20 12:56 Blood Pressure Sarah Beth n 90 10/02/20 12:56 Pulse Oximetry 97 10/02/20 12:56 Oxygen Delivery Me thod 10/02/20 12:57 Exam: Pre-Anes Outpt Exam: alert, oriented x 3, clear to auscultation bilaterally and regular rate & rhythm Cardiac Studies: No Data to Display
[2020-10-02 13:18] LABS: OR HCG Qualitative Urine Negative (Negative)
--- NOTE | 2020-10-02 14:23 | W.PM.OPSUD ---
Surgery/Procedure H&P Update DATE OF PROCEDURE: October 02, 2020 DATE H&P PERFORMED: 09/27/20 H&P UPDATE INFORMATION: I have reviewed H&P completed within last 30 days, I have examined patient prior to procedure and No changes to prior documentation PREOP DIAGNOSIS: Term IUP, failure to progress PLANNED PROCEDURE: Operation Date: 10/02/20 14:00 Proposed Procedures p Lap Fulg,Removal of Tubes Sterilization 96759 z30.2(Not Applicable) - Edmundo Blanco MD
--- NOTE | 2020-10-02 15:43 | P.OP_ITS ---
Operative Report Date of procedure: October 02, 2020 Pre-op Diagnosis: Desire permanent sterilization Post-op diagnosis: same Procedure Done: Laparoscopic bilateral salpingectomy via fulguration Specimens removed/disposition: left and right fallopian tubes Surgeon: Edmundo Blanco MD Anesthesia: General Estimated blood loss (mL): 5 IV fluids (mL): 500 Urine output (mL): 50 Complications: None Condition: stable Disposition: PACU Brief History: 33-year-old female G4, P4 desires permanent sterilization Procedure: After informed consent, the patient was taken to the operating room where general anesthesia was administered. She was placed in the dorsal lit hotomy position and prepped and draped in sterile fashion. Pre-Procedure Time- Out verifying the correct patient identity, correct procedure verified with consent, correct site and side, correct patient position, availability of correct implants and any special equipment or requirements was performed and acknowledge by the OR team. The patient was examined under anesthesia and found to have a normal uterus with normal adnexa. A weighted speculum was placed in the vagina, and the anterior lip of cervix was grasped with the single toothed tenaculum. A uterine manipulator was advanced into the endocervical canal and uterus. The tenaculum was removed after uterine manipulator was secured. The speculum was removed from the vagina. An intraumbilical incision was made with a scalpel. While tenting up on the abdomen, a Verres needle was admitted into the intra-abdominal cavity. A saline drop test was performed and noted to be within normal limits. Pneumoperitoneum was attained with 4 liters of carbon dioxide. The Verres needle was removed. A 5 mm Opitc view trocar and sleeve were admitted into the abdomen and laparoscopic confirmation of location was achieved. A second incision was made 3 cm above the symphysis pubis, and a 5 mm trocar sleeves were admitted into the abdomen under direct laparoscopic visualization without complication. A survey revealed normal abdominal anatomy with the exception of string adhesion to the right lower anterior abdominal wall. A 5 mm blunt probe was advanced through the second trocar sleeve, and light manipulation of ovaries and uterus to assess the posterior aspects was performed. The pelvic survey shows normal uterus, left and right adnexa. The left ovary was noted with a follicular cyst. The string adhesion was fulgurated and transected with good hemostasis with the Voyant. The patient was placed into Trendelenburg position. The fallopian tubes were inspected bilaterally and the fimbriated ends of the fallopian tubes were visualized bilaterally. Attention was then directed to the right side. The fallopian tube and mesosalpinx were grasped and the underlying mesosalpinx was cauterized and cut using the Voyant device. Serial cauterization and cutting was used to separate the fallopian tube from the underlying mesosalpinx until it could be amputated cutting it approximated 2 cm from the cornua. Attention was then turned to the contralateral fallopian tube, which was removed in similar fashion. Both specimens were removed through the trocar and sent to pathology. The instruments were removed. The suprapubic trocar port was removed under direct visualization insuring good hemostasis. The carbon dioxide was allowed to escape from the abdomen. The intraumbilical trocar sleeve was withdrawn under visualization with laparoscope in the sleeve to insure hemostasis. The skin incisions were closed with 3-O Monocryl subcuticular stich and Dermabond. The instruments were removed from the vagina, and excellent hemostasis was noted. The patient tolerated the procedure well, and sponge, lap and needle count were correct times two. The patient was taken to the recovery room in good condition.
--- NOTE | 2020-10-02 17:13 | ANE.PACU2 ---
Inpatient post-anesthesia follow up: Airway intact: Yes Vital signs: Temperature 97.6 F Pulse Rate 90 Respiratory Rate 17 Blood Pressure 110/75 Pulse Oximetry 95 Oxygen Delivery Me thod Room Air Oxygen Flow Rate 8 Fraction of Inspir ed Oxygen Hydration adequate: Yes Nausea and vomiting: No Pain level: 1 Mental status: Baseline
== END 2020-10-02 16:55 | disposition home or self-care (01) ==
PROVIDERS: Anesthesiology; Visit Provider Obstetrics & Gynecology
PROC: (CPT 58661; principal; 2020-10-02 13:50)
DX: Z30.2 Encounter for sterilization (principal); J44.9 Chronic obstructive pulmonary disease, unspecified; E66.01 Morbid (severe) obesity due to excess calories; Z68.33 Body mass index [BMI] 33.0-33.9, adult; F17.210 Nicotine dependence, cigarettes, uncomplicated
CPT/HCPCS: 58661; 84703; 88302; J0690; J1100; J2405; J2704; J2710; J3010; J3490; J7030

== ENCOUNTER → 2021-09-15 13:24 | Outpatient (BNVA) | payer MEDICAID, SELFPAY | PROVIDERS: Visit Provider Registered Nurse Neonatal Intensive Care | DX: Z20.822 Contact with and (suspected) exposure to COVID-19 (principal) | CPT/HCPCS: 87635 ==

== ENCOUNTER 2022-03-21 20:24 | Emergency (ER) | payer MEDICAID, SELFPAY ==
[2022-03-21 20:30] VITALS: PULSE 111; RESP 18; TEMP 37.2; O2SAT 96; BMI 36.6
[2022-03-21 21:11] LABS: Basophils # 0.1 10^3/uL (0.0-0.1); Basophils % 0.9 %; Eosinophils # 0.3 10^3/uL (0.0-0.8); Eosinophils % 2.7 %; Hematocrit 35.7 % (37.0-47.0); Hemoglobin 10.6 g/dL (11.5-15.3); Lymphocytes # 3.3 10^3/uL (0.8-4.8); Lymphocytes % 31.5 %; Mean Corpuscular HGB Conc 29.7 g/dL (30.0-36.0); Mean Corpuscular Hemoglobin 24.2 pg (28.0-34.0); Mean Corpuscular Volume 81.5 fl (81-99); Mean Platelet Volume 9.3 fL (7.4-10.4); Monocytes # 0.5 10^3/uL (0.2-0.9); Monocytes % 4.6 %; Neutrophils # 6.19 10^3/uL (1.8-7.7); Neutrophils % 59.9 %; Nucleated Red Blood Cells % 0 %; Platelet Count 388 10^3/cmm (130-400); Red Blood Count 4.38 10^6/uL (4.1-5.3); Red Cell Distribution Width 14.6 % (12.1-15.1); White Blood Count 10.3 10^3/uL (4.0-10.0)
--- NOTE | 2022-03-21 21:56 | USR_ITS ---
PROCEDURE INFORMATION: Exam: US Pelvis Limited, Transabdominal and US Pelvis, Transvaginal Exam date and time: 03/21/2022 10:10 PM Age: 36 years old Clinical indication: Menstruation abnormalities; Other: Bleeding a week after cycle stopped; Prior surgery; Surgery date: 6+ months; Surgery type: ; Additional info: Vag bleed TECHNIQUE: Imaging protocol: Real-time transabdominal and transvaginal pelvic ultrasound (limited) with image documentation. Transvaginal imaging was used for better evaluation of the endometrium, adnexa, and/or cervix. COMPARISON: US OB [facility] w [facility] 08/07/2020 3:13 PM FINDINGS: Uterus: 10.1 x 5.2 x 6.1 cm. Endometrial thickness 8 mm. 2.1 cm intramural right fundal fibroid. Cervix: Small nabothian cyst in the posterior cervix. Small amount of endocervical fluid. Right ovary/adnexa: 2.8 x 1.8 x 2.9 cm with normal blood flow. Left ovary/adnexa: 2.9 x 1.9 x 2.7 cm with normal blood flow. Intraperitoneal space: No free peritoneal fluid. US/US pelvis lmt w transvag IMPRESSION: 1. No acute findings. 2. 2.1 cm fundal fibroid
[2022-03-21 23:27] LABS: Add Urine Culture? No; Add Urine Microscopic? YES; Amorphous Sediment Urine 3+ /hpf; Bacteria Urine 1+ /hpf; Bilirubin Urine Neg (Negative); Blood Urine 3+ (Negative); Glucose Urine UA Norm (Normal); Ketones Urine Negative (Negative); Leukocyte Esterase Urine Trace (Negative); Mucus Urine 2+ /hpf; Nitrate Urine Negative (Negative); Protein Urine Neg (Negative); RBC Urine 0-4 /hpf (0-2); Sulfosalicylic Acid Urine Negative (Negative); Urine Appearance SL Hazy (CLEAR); Urine Color Yellow (Yellow); Urobilinogen Urine Norm (Negative); WBC Urine 55-80 /hpf (0-5); pH Urine 8 (5-7)
[2022-03-22 00:09] VITALS: BP 149/81; PULSE 101; RESP 17; TEMP 36.7; O2SAT 99
--- NOTE | 2022-03-22 17:46 | W.ED.FEMALGU ---
HPI - Female Genitourinary General: Chief complaint: Vaginal Bleeding Stated complaint: vaginal bleeding, cramping Time Seen by Provider: 03/21/22 21:10 History of Present Illness: 36 yo female patient presents to ER with off and on vaginal bleeding x 2 months. Pt has hx of PCOS and was suppose to have US but has not done that yet. Pt denies any vaginal pain or abd pain. Pt states she has had some dizziness and tiredness from bleeding. Pt denies any fever, chest pain or SOB. Associated symptoms: Deny abdominal pain, headache(s), nausea or syncope Review of Systems Const: Denies: fever(s), chills, body aches, change in appetite, change in weight, fatigue, malaise or diaphoresis Card: Denies: chest pain, palpitations, irregular heart rhythm, edema, swelling of feet/ankles, lightheadedness, syncope, pre-syncope, dyspnea on exertion, orthopnea, leg pain with exertion or acrocyanosis Resp: Denies: dyspnea, productive cough, non-productive cough, wheezing, stridor, pain on inspiration, change in phlegm color, hemoptysis or chest congestion GI: Denies: abdominal pain, nausea, vomiting, hematemesis, dysphagia, diarrhea, constipation, GI cramping, change in bowel habits or rectal pain : Denies: flank pain, difficulty voiding, dysuria, urinary frequency, urinary urgency, urinary hesitancy or hematuria Musc: Denies: neck pain, back pain, extremity pain, extremity swelling, joint pain, joint swelling, joint redness, joint warmth or deformity Skin/Breast: Denies: rash, pruritus, erythema, sores, new lesions, changes in skin color or dry skin Neuro: Denies: headache(s), numbness in extremities, weakness in extremities, sensory changes, lack of coordination, difficulty walking, frequent falls, dizziness, vertigo, confusion, behavioral changes, Slurred speech present, difficulty communicating thoughts or seizure-like activity Psych: Denies: anxiety, depression, suicidal ideation or homicidal ideation Endo: Denies: polyuria, polydipsia, tired all the time, cold intolerance, excessive sweating, flushing, hot flashes or heat intolerance [place]ker/Lymph: Denies: easy bruising, easy bleeding, petechiae, purpura, enlarged lymph nodes or tender lymph nodes All/Imm: Denies: urticaria, throat swelling, tongue swelling, facial swelling, acute wheezing or itchy eyes PFSH ED PFSH: Medical History Aftercare following surgery of the genitourinary system Anxiety and depression Anxiety during Depression during Request for sterilization Surgical History H/O section 08/15/2020- low transverse delivery, performed by Dr. Blanco at [facility] History of tonsillectomy and adenoidectomy Family History Mother Diabetes Unknown Heart disease Maternal side in general Thyroid disease Maternal side in general Family/Other Ovarian cancer Maternal Aunt-- dx age unknown Denies family history of Colon cancer Breast cancer Bleeding disorder Hypertension Uterine cancer Stroke Social History Additional social history: - Tobacco use: smokes 0.25 PPD; this is down from 1-1.5 ppd Alcohol use: no longer drinking during as of 04/16/2020, had been having couple glasses of wine Drug use: denies Physical Exam Const: COMMON NORMALS: no acute distress, patient oriented x3, healthy appearing, alert and well nourished GENERAL APPEARANCE: cooperative, comfortable, well kempt and well developed; not ill appearing ORIENTATION/CONSCIOUSNESS: Yes awake, Yes oriented to person, Yes oriented to place and Yes oriented to time Neck/C-Spine: COMMON NORMALS: no meningeal signs Lymph: LYMPHATIC: no lymphadenopathy noted and no lymphedema noted Resp: COMMON NORMALS: normal respiratory effort, No retractions, No use of accessory muscles and clear to auscultation bilaterally EFFORT & INSPECTION: Yes able to speak in complete sentences and Yes symmetric chest movement AUSCULTATION: clear to auscultation bilaterally Cardio: COMMON NORMALS: regular rate and regular rhythm RATE: regular rate RHYTHM: regular rhythm GI: COMMON NORMALS: Normal to inspection, nondistended, normoactive bowel sounds present, Soft to palpation, non-tender, No hepatosplenomegaly present, no masses and no bruits INSPECTION: Yes normal to inspection AUSCULTATION: Yes normoactive bowel sounds PALPATION: Yes Soft to palpation and Yes No hepatosplenomegaly present PERCUSSION: normal to percussion RECTAL EXAM: deferred : COMMON NORMALS: Yes no CVA tenderness BLADDER/KIDNEY EXAM: Yes no CVA tenderness Back/Pelvis: COMMON NORMALS: no CVA tenderness, thoracic and lumbar spine normal to inspection, no thoracic nor lumbar tenderness and thoraco-lumbar ROM normal THORACIC SPINE/UPPER BACK: Yes normal to inspection LUMBAR SPINE/LOWER BACK: Yes normal to inspection Extremity: COMMON NORMALS: normal to inspection, full ROM and capillary refill normal GENERAL: Yes normal exam except as noted Neuro: COMMON NORMALS: patient oriented x3, CN's II-XII intact bilaterally, moves all extremities, no focal motor deficits, no sensory deficits noted and gait normal SENSORIUM/ORIENTATION: Yes alert, Yes oriented to person, Yes oriented to place and Yes oriented to time MENINGEAL SIGNS: Yes no meningeal signs SPEECH: speech normal GAIT: Yes Normal gait present Psych: COMMON NORMALS: mental status grossly normal, Normal thought process present, cooperative, normal affect, speech normal, activity/motor behavior normal, denies hallucinations, denies homicidal ideation and denies suicidal ideation APPEARANCE: Yes grossly normal and Yes well kempt ATTITUDE: Yes calm ACTIVITY/MOTOR BEHAVIOR: Yes appropriate eye contact SPEECH: Yes normal speech THOUGHT PROCESS: Normal thought process present THOUGHT CONTENT: Yes Normal thought content present ATTENTION/CONCENTRATION: Yes attention grossly intact MEMORY/COGNITION: Yes memory grossly intact INSIGHT: Good insight present (Psych) JUDGEMENT: Good judgement present (Psych) Skin: COMMON NORMALS: no rashes or lesions noted, no wounds, turgor normal, no jaundice, no petechiae and no mottling GENERAL SKIN EXAM: no rashes or lesions noted and turgor normal Course Vital Signs: Vital signs: Vital Signs Temperature 98.1 F 03/22/22 00:09 Pulse Rate 101 H 03/22/22 00:09 Respiratory Rate 17 03/22/22 00:09 Blood Pressure 149/81 03/22/22 00:09 Pulse Oximetry 99 03/22/22 00:09 [facility] - Female Medical Decision Making Patient is well appearing non toxic and in no acute distress. 36 yo female patient presents to ER with off and on vaginal bleeding x 2 months. Pt has hx of PCOS and was suppose to have US but has not done that yet. Pt denies any vaginal pain or abd pain. Pt states she has had some dizziness and tiredness from bleeding. Pt denies any fever, chest pain or SOB. Pt abd is soft and nontender. Pt is not actively bleeding at this time. Pt denies any vaginal pain. US reveals findings c/w PCOS. Pt has established with [facility] and has follow up scheduled. H&H are stable. I do not feel patient would benefit from any other emergent testing. I will have patient follow up for recheck. Lab Data 03/21/22 20:57 Radiology Impressions Pelvic/Transvag US 03/21/22 21:56 IMPRESSION: 1. No acute findings. 2. 2.1 cm fundal fibroid Laboratory Results WBC 10.3 10^3/uL (4.0-10.0) H 03/21/22 20:57 RBC 4.38 10^6/uL (4.1-5.3) 03/21/22 20:57 Hgb 10.6 g/dL (11.5-15.3) L 03/21/22 20:57 Hct 35.7 % (37.0-47.0) L 03/21/22 20:57 MCV 81.5 fl (81-99) 03/21/22 20:57 MCH 24.2 pg (28.0-34.0) L 03/21/22 20:57 MCHC 29.7 g/dL (30.0-36.0) L 03/21/22 20:57 RDW 14.6 % (12.1-15.1) 03/21/22 20:57 Plt Count 388 10^3/cmm (130-400) 03/21/22 20:57 MPV 9.3 fL (7.4-10.4) 03/21/22 20:57 Neut % (Auto) 59.9 % 03/21/22 20:57 Lymph % (Auto) 31.5 % 03/21/22 20:57 [place] % (Auto) 4.6 % 03/21/22 20:57 Eos % (Auto) 2.7 % 03/21/22 20:57 Baso % (Auto) 0.9 % 03/21/22 20:57 Neut # (Auto) 6.19 10^3/uL (1.8-7.7) 03/21/22 20:57 Lymph # (Auto) 3.3 10^3/uL (0.8-4.8) 03/21/22 20:57 [place] # (Auto) 0.5 10^3/uL (0.2-0.9) 03/21/22 20:57 Eos # (Auto) 0.3 10^3/uL (0.0-0.8) 03/21/22 20:57 Baso # (Auto) 0.1 10^3/uL (0.0-0.1) 03/21/22 20:57 Nucleated RBC % (auto) 0 % 03/21/22 20:57 Nucleated RBCs # 0.0 /100WBC 03/21/22 20:57 Ser , Semi-Qnt 1.00 mIU/mL 03/21/22 20:57 Urine Color Yellow (Yellow) 03/21/22 23:14 Urine Appearance Sl hazy (CLEAR) A 03/21/22 23:14 Urine pH 8 (5-7) H 03/21/22 23:14 Ur Specific [place] 1.010 (1.005-1.030) 03/21/22 23:14 Urine Protein Neg (Negative) 03/21/22 23:14 Urine Glucose (UA) Norm (Normal) 03/21/22 23:14 Urine Ketones Negative (Negative) 03/21/22 23:14 Urine Blood 3+ (Negative) H 03/21/22 23:14 Urine Nitrate Negative (Negative) 03/21/22 23:14 Urine Bilirubin Neg (Negative) 03/21/22 23:14 Prot Sulfosalicylic Acd Negative (Negative) 03/21/22 23:14 Urine Urobilinogen Norm mg/dL (Negative) 03/21/22 23:14 Ur Leukocyte Esterase Trace (Negative) H 03/21/22 23:14 Urine RBC 0-4 /hpf (0-2) H 03/21/22 23:14 Urine WBC 55-80 /hpf (0-5) H 03/21/22 23:14 Ur Squamous Epith Cells 10-15 /hpf (0-5) H 03/21/22 23:14 Amorphous Sediment 3+ /hpf 03/21/22 23:14 Urine Bacteria 1+ /hpf (NONE) H 03/21/22 23:14 Urine Mucus 2+ /hpf 03/21/22 23:14 Discharge Plan Discharge Patient Disposition: Home Clinical Impression: Fibroid, uterine Condition: Stable Prescriptions: No Action pantoprazole [Protonix] 40 mg tablet,delayed release (DR/EC) 40 mg PO BEDTIME prenat.vits,cristian,[id number] Tablet 1 tab PO BEDTIME trazodone 50 mg tablet 50 mg PO BEDTIME quetiapine [Seroquel] 100 mg tablet 400 mg PO BEDTIME fluoxetine [Prozac] 40 mg capsule 60 mg PO BEDTIME albuterol sulfate 90 mcg/actuation HFA aerosol inhaler 2 puff inhalation Q6H PRN (Reason: shortness of breath or wheezing) Qty: 8.5 0RF fluticasone propionate [Flonase Allergy Relief] 50 mcg/actuation spray,suspension 1 spray intranasal BID PRN (Reason: nasal congestion) Qty: 9.9 0RF Rx Instructions: administer into each nostril ibuprofen 800 mg tablet 800 mg PO TID PRN (Reason: pain) Qty: 60 0RF hydrocodone-acetaminophen 5-325 mg tablet 1 tab PO Q4H PRN (Reason: pain) Qty: 30 0RF acetaminophen 325 mg capsule 325 mg PO Q4H PRN (Reason: fever or pain) Qty: 60 0RF loratadine [Claritin] 10 mg Tablet 10 mg PO DAILY PRN (Reason: Allergy Symptoms) ibuprofen 800 mg Tablet 800 mg PO TID PRN (Reason: pain) Qty: 40 0RF Discharge Orders: Discharge ED (Routine); Ordered 03/21/22 Ordered By: Renee Bowser Discharge Diet: Advance as tolerated Discharge Activity: Increase activity as tolerated Patient Instructions: Opioid Safety, Pain Management Activity Restrictions/Additional Instructions: Please follow up with [facility] Station Inspector will call you with follow up information Return to the ER with any worsening of bleeding, dizziness, shortness of breath or any other concerns Stand Alone Forms: Work/School Release Coding Level of Care Code ED Construction Ironworker for Mariano Jaimes
--- NOTE | 2022-03-23 11:53 | DCPLANNER ---
Addendum entered by Jolynn Danielson 03/30/22 11:56: materials manager received the following message from the [facility] care clinic regarding follow up appointment: Called pt to schedule appt for follow up from the ED. Vm is full and could not leave a message. //TADEO materials manager called phone number [phone], unable to leave a voicemail box was full and could not leave a voicemail. Original Note: materials manager had message to schedule a follow up appointment for patient with [facility] [place] [facility]. materials manager sent patients information to the front office staff at [facility]. Patients information will be printed and reviewed. Clinic will call patient with appointment information.
== END 2022-03-22 00:10 | disposition home or self-care (01) ==
PROVIDERS: Emergency Medicine; Emergency Provider Registered Nurse
DX: D25.9 Leiomyoma of uterus, unspecified (principal); F17.210 Nicotine dependence, cigarettes, uncomplicated
CPT/HCPCS: 36415; 76830; 76857; 81001; 84702; 85025; 99284

== ENCOUNTER 2022-07-22 22:23 | Emergency (ER) | payer SELFPAY ==
[2022-07-22 22:31] VITALS: BP 130/92; PULSE 110; RESP 16; TEMP 36.9; O2SAT 98; BMI 35.4
--- NOTE | 2022-07-22 22:41 | ED_ITS ---
HPI - Nausea/Vomiting/Diarrhea General: Chief complaint: Nausea/Vomiting/Diarrhea Stated complaint: vomiting, fever, pain Time Seen by Provider: 07/22/22 22:27 Source: patient Mode of arrival: ambulatory Limitations: no limitations History of Present Illness: 36-year-old female who states that over the last 2 to 3 days has been having abdominal cramping with fevers and vomiting states that today got much worse she has been vomiting with fever 101 states she pain is diffuse in nature states she is currently on her. States she feels like she had a foul-smelling discharge when she changes her tampons but denies any pelvic pain has had some slight dysuria. Associated nausea: Yes Associated symtoms: Reports dysuria and nausea; Denies chest pain or headache(s) Review of Systems Const: Reports: fever(s), chills and body aches; Denies: change in appetite ENMT: Denies: throat pain or dental pain Card: Denies: chest pain Resp: Denies: dyspnea GI: Reports: abdominal pain, nausea and vomiting; Denies: diarrhea : Reports: dysuria Musc: Denies: neck pain or back pain Skin/Breast: Denies: rash Neuro: Denies: headache(s) PFSH ED PFSH: Medical History Aftercare following surgery of the genitourinary system Anxiety and depression Anxiety during Depression during Request for sterilization Surgical History H/O section 08/15/2020- low transverse delivery, performed by Dr. Blanco at [facility] History of tonsillectomy and adenoidectomy Family History Mother Diabetes Unknown Heart disease Maternal side in general Thyroid disease Maternal side in general Family/Other Ovarian cancer Maternal Aunt-- dx age unknown Denies family history of Colon cancer Breast cancer Bleeding disorder Hypertension Uterine cancer Stroke Social History Additional social history: - Tobacco use: smokes 0.25 PPD; this is down from 1-1.5 ppd Alcohol use: no longer drinking during as of 04/16/2020, had been having couple glasses of wine Drug use: denies Physical Exam Const: COMMON NORMALS: no acute distress, patient oriented x3 and healthy appearing HENMT: COMMON NORMALS: normocephalic and atraumatic HEAD & SCALP: normocephalic and atraumatic Eye: COMMON NORMALS: conjunctivae normal CONJUNCTIVA: Yes conjunctivae normal Neck/C-Spine: COMMON NORMALS: full ROM and supple Chest: COMMONS NORMALS: normal inspection of the chest and normal palpation of entire chest wall Resp: COMMON NORMALS: normal respiratory effort, No retractions, No use of accessory muscles and clear to auscultation bilaterally AUSCULTATION: clear to auscultation bilaterally Cardio: COMMON NORMALS: regular rate, regular rhythm and No murmurs present (Cardio) RATE: regular rate RHYTHM: regular rhythm GI: COMMON NORMALS: Normal to inspection, nondistended, normoactive bowel sounds present, Soft to palpation, non-tender and no masses PALPATION: Yes Soft to palpation Extremity: COMMON NORMALS: normal to inspection and full ROM Neuro: COMMON NORMALS: patient oriented x3, moves all extremities and no focal motor deficits Psych: COMMON NORMALS: mental status grossly normal, Normal thought process present and cooperative THOUGHT PROCESS: Normal thought process present Skin: COMMON NORMALS: no rashes or lesions noted and no wounds GENERAL SKIN EXAM: no rashes or lesions noted Course Vital Signs: Vital signs: Vital Signs Temperature 98.4 F 07/22/22 22:31 Pulse Rate 90 07/23/22 00:05 Respiratory Rate 14 07/23/22 00:05 Blood Pressure 114/88 07/23/22 00:05 Pulse Oximetry 99 07/23/22 00:05 Oxygen Delivery Me thod Room Air 07/22/22 22:31 MDM - Nausea/Vomiting/Diarrhea Medical Decision Making In originPatient presents with vomiting diarrhea that is likely CT scan here is normal blood work is all normal as well. She is feeling improved here we will prescribe her Zofran for home she is to follow-up with PCP and return if worsening she understands agrees to plan. Medical Records I reviewed the patient's medical records. Lab Data I reviewed the patient's lab results. 07/22/22 22:42 07/22/22 22:42 Radiology Impressions Abdomen/Pelvis CT 07/22/22 22:49 IMPRESSION: 1. Tiny bilateral pleural effusions. 2. 2.8 cm left ovarian cyst. No further imaging is recommended. (Reference: Mike) REFERENCES: Mike et al. Management of Incidental Adnexal Findings on CT and MRI: A White Paper of the ACR Incidental Findings Committee, J Am Sheldon Radiol. 2019;17(2):248-254. Laboratory Results WBC 9.0 10^3/uL (4.0-10.0) 07/22/22 22:42 RBC 4.89 10^6/uL (4.1-5.3) 07/22/22 22:42 Hgb 11.5 g/dL (11.5-15.3) 07/22/22 22:42 Hct 37.9 % (37.0-47.0) 07/22/22 22:42 MCV 77.5 fl (81-99) L 07/22/22 22:42 MCH 23.5 pg (28.0-34.0) L 07/22/22 22:42 MCHC 30.3 g/dL (30.0-36.0) 07/22/22 22:42 RDW 15.9 % (12.1-15.1) H 07/22/22 22:42 Plt Count 330 10^3/cmm (130-400) 07/22/22 22:42 MPV 9.5 fL (7.4-10.4) 07/22/22 22:42 Neut % (Auto) 76.9 % 07/22/22 22:42 Lymph % (Auto) 14.7 % 07/22/22 22:42 [place] % (Auto) 4.2 % 07/22/22 22:42 Eos % (Auto) 3.7 % 07/22/22 22:42 Baso % (Auto) 0.3 % 07/22/22 22:42 Neut # (Auto) 6.90 10^3/uL (1.8-7.7) 07/22/22 22:42 Lymph # (Auto) 1.3 10^3/uL (0.8-4.8) 07/22/22 22:42 [place] # (Auto) 0.4 10^3/uL (0.2-0.9) 07/22/22 22:42 Eos # (Auto) 0.3 10^3/uL (0.0-0.8) 07/22/22 22:42 Baso # (Auto) 0.0 10^3/uL (0.0-0.1) 07/22/22 22:42 Nucleated RBC % (auto) 0 % 07/22/22 22:42 Nucleated RBCs # 0.0 /100WBC 07/22/22 22:42 Sodium 136 mmol/L (136-145) 07/22/22 22:42 Potassium 3.9 mmol/L (3.5-5.1) 07/22/22 22:42 Chloride 101 mmol/L (98-107) 07/22/22 22:42 Carbon Dioxide 23 mmol/L (22-29) 07/22/22 22:42 Anion Gap 15.9 (5-19) 07/22/22 22:42 BUN 13 mg/dL (6-20) 07/22/22 22:42 Creatinine 0.6 mg/dL (0.5-0.9) 07/22/22 22:42 GFR Calculation 113.8 mL/min (90-130) 07/22/22 22:42 Glucose 100 mg/dL (65-115) 07/22/22 22:42 Calculated Osmolality 282 mOsm/kg (285-295) L 07/22/22 22:42 Calcium 9.3 mg/dL (8.5-10.5) 07/22/22 22:42 Total Bilirubin 0.4 mg/dL (0.15-1.2) 07/22/22 22:42 AST 9 U/L (0-32) 07/22/22 22:42 ALT < 5 U/L (0-33) 07/22/22 22:42 Alkaline Phosphatase 62 U/L (35-105) 07/22/22 22:42 Total Protein 7.9 g/dL (6.6-8.7) 07/22/22 22:42 Albumin 4.6 g/dL (3.5-5.2) 07/22/22 22:42 Globulin 3.3 g/dL (1.3-4.6) 07/22/22 22:42 Lipase 26 U/L (13-60) 07/22/22 22:42 HCG, Qual Negative (Negative) 07/22/22 22:42 Urine Color Straw (Yellow) 07/22/22 23:53 Urine Appearance Clear (CLEAR) 07/22/22 23:53 Urine pH 5 (5-7) 07/22/22 23:53 Ur Specific [place] 1.010 (1.005-1.030) 07/22/22 23:53 Urine Protein Trace (Negative) 07/22/22 23:53 Urine Glucose (UA) Norm (Normal) 07/22/22 23:53 Urine Ketones Negative (Negative) 07/22/22 23:53 Urine Blood Neg (Negative) 07/22/22 23:53 Urine Nitrate Negative (Negative) 07/22/22 23:53 Urine Bilirubin Neg (Negative) 07/22/22 23:53 Urine Urobilinogen Norm mg/dL (Negative) 07/22/22 23:53 Ur Leukocyte Esterase Negative (Negative) 07/22/22 23:53 Urine RBC None /hpf (0-2) 07/22/22 23:53 Urine WBC None /hpf (0-5) 07/22/22 23:53 Ur Squamous Epith Cells 0-4 /hpf (0-5) H 07/22/22 23:53 Amorphous Sediment Not Reportable 07/22/22 23:53 Urine Bacteria Trace /hpf (NONE) 07/22/22 23:53 Discharge Plan Discharge Patient Disposition: Home Clinical Impression: Abdominal pain, Vomiting Condition: Stable Prescriptions: New ondansetron 4 mg tablet,disintegrating 4 mg PO Q6H PRN (Reason: nausea and vomiting) Qty: 14 0RF No Action pantoprazole [Protonix] 40 mg tablet,delayed release (DR/EC) 40 mg PO BEDTIME prenat.vits,cristian,[id number] Tablet 1 tab PO BEDTIME trazodone 50 mg tablet 50 mg PO BEDTIME quetiapine [Seroquel] 100 mg tablet 400 mg PO BEDTIME fluoxetine [Prozac] 40 mg capsule 60 mg PO BEDTIME albuterol sulfate 90 mcg/actuation HFA aerosol inhaler 2 puff inhalation Q6H PRN (Reason: shortness of breath or wheezing) Qty: 8.5 0RF fluticasone propionate [Flonase Allergy Relief] 50 mcg/actuation spray,suspension 1 spray intranasal BID PRN (Reason: nasal congestion) Qty: 9.9 0RF Rx Instructions: administer into each nostril ibuprofen 800 mg tablet 800 mg PO TID PRN (Reason: pain) Qty: 60 0RF hydrocodone-acetaminophen 5-325 mg tablet 1 tab PO Q4H PRN (Reason: pain) Qty: 30 0RF acetaminophen 325 mg capsule 325 mg PO Q4H PRN (Reason: fever or pain) Qty: 60 0RF loratadine [Claritin] 10 mg Tablet 10 mg PO DAILY PRN (Reason: Allergy Symptoms) ibuprofen 800 mg Tablet 800 mg PO TID PRN (Reason: pain) Qty: 40 0RF Discharge Orders: Discharge ED (Routine); Ordered 07/23/22 Ordered By: Andre Gilliland Discharge Diet: Advance as tolerated Discharge Activity: Resume usual activity Patient Instructions: Acute Nausea and Vomiting (ED), Abdominal Pain (ED) Stand Alone Forms: Work/School Release Coding Level of Care Code ED Pension Fund Manager for Mariano Jaimes
[2022-07-22 22:47] LABS: Basophils % 0.3 %; Eosinophils # 0.3 10^3/uL (0.0-0.8); Eosinophils % 3.7 %; Hematocrit 37.9 % (37.0-47.0); Hemoglobin 11.5 g/dL (11.5-15.3); Lymphocytes # 1.3 10^3/uL (0.8-4.8); Lymphocytes % 14.7 %; Mean Corpuscular HGB Conc 30.3 g/dL (30.0-36.0); Mean Corpuscular Hemoglobin 23.5 pg (28.0-34.0); Mean Corpuscular Volume 77.5 fl (81-99); Mean Platelet Volume 9.5 fL (7.4-10.4); Monocytes # 0.4 10^3/uL (0.2-0.9); Monocytes % 4.2 %; Neutrophils % 76.9 %; Nucleated Red Blood Cells % 0 %; Platelet Count 330 10^3/cmm (130-400); Red Blood Count 4.89 10^6/uL (4.1-5.3); Red Cell Distribution Width 15.9 % (12.1-15.1)
--- NOTE | 2022-07-22 22:49 | CTR_ITS ---
PROCEDURE INFORMATION: Exam: CT Abdomen And Pelvis With Contrast Exam date and time: 07/22/2022 11:11 PM Age: 36 years old Clinical indication: Nausea and vomiting; Prior surgery; Surgery type: Csection; Patient HX: N/v/d x 3 days; Additional info: Abd pain TECHNIQUE: Imaging protocol: Computed tomography of the abdomen and pelvis with contrast. Radiation optimization: All CT scans at this facility use at least one of these dose optimization techniques: automated exposure control; mA and/or kV adjustment per patient size (includes targeted exams where dose is matched to clinical indication); or iterative reconstruction. Contrast material: OMNI 350; Contrast volume: 100 ml; Contrast route: INTRAVENOUS (IV); REPORTING DATA: Count of CT and Cardiac NM exams in prior 12 months: This patient has received 0 known CTs and 0 known cardiac nuclear medicine studies in the 12 months prior to the current study. COMPARISON: US pelvis lmt w transvag 03/21/2022 10:10 PM RADIATION DOSE METRICS: Total DLP (mGy-cm): 784.53 FINDINGS: Lungs: The lung bases are clear. No effusion Pleural spaces: Tiny bilateral pleural effusions. Liver: Normal. No mass. Gallbladder and bile ducts: No wall thickening, pericholecystic fluid or stones. Pancreas: Normal. No ductal dilation. Spleen: Normal. No splenomegaly. Adrenal glands: Normal. No mass. Kidneys and ureters: Normal. No hydronephrosis. Stomach and bowel: Unremarkable. No obstruction. No mucosal thickening. Appendix: No evidence of appendicitis. Intraperitoneal space: Unremarkable. No free air. No significant fluid collection. Vasculature: Unremarkable. No abdominal aortic aneurysm. Lymph nodes: Unremarkable. No enlarged lymph nodes. Urinary bladder: Unremarkable as visualized. Reproductive: 2.8 cm left ovarian cyst. Bones/joints: Unremarkable. No acute fracture. Soft tissues: Unremarkable. CT/CT abdomen pelvis w con* [id number] IMPRESSION: 1. Tiny bilateral pleural effusions. 2. 2.8 cm left ovarian cyst. No further imaging is recommended. (Reference: Mike) REFERENCES: Mike et al. Management of Incidental Adnexal Findings on CT and MRI: A White Paper of the ACR Incidental Findings Committee, J Am Sheldon Radiol. 2019;17(2):248-254.
[2022-07-22] MEDS: sodium chloride 0.9% 1,000 ML 999 ML IV (22:51)
[2022-07-22 22:52] VITALS: RESP 16
[2022-07-22] MEDS: ondansetron 2 mg/ML SDV 2 mL 4 MG IVP (22:52)
[2022-07-22] MEDS: morphine 4 mg/mL SDV 1 mL IVP (22:52)
[2022-07-22 23:06] LABS: HCG, Serum Qual Negative (Negative)
[2022-07-22 23:08] LABS: Alanine Aminotransferase < 5 U/L (0-33); Albumin Level 4.6 g/dL (3.5-5.2); Alkaline Phosphatase 62 U/L (35-105); Anion Gap 15.9 (5-19); Aspartate Amino Transferase 9 U/L (0-32); Blood Urea Nitrogen 13 mg/dL (6-20); Calcium 9.3 mg/dL (8.5-10.5); Carbon Dioxide 23 mmol/L (22-29); Chloride 101 mmol/L (98-107); Creatinine Clr Calc Pharmacy 139.9225; Globulin 3.3 g/dL (1.3-4.6); Glomerular Filtration Rate 113.8 mL/min (90-130); Glucose 100 mg/dL (65-115); Lipase 26 U/L (13-60); Osmolality Calculated 282 mOsm/kg (285-295); Potassium 3.9 mmol/L (3.5-5.1); Sodium 136 mmol/L (136-145); Total Bilirubin 0.4 mg/dL (0.15-1.2); Total Protein 7.9 g/dL (6.6-8.7)
[2022-07-22] MEDS: iohexol 350 mg/mL 500 mL Btl (per mL) IV (23:14)
[2022-07-22 23:51] VITALS: RESP 16
[2022-07-22] MEDS: HYDROmorphone 1 mg/mL INJ 1 mL IVP (23:51)
[2022-07-23] MEDS: sodium chloride 0.9% 1,000 ML 999 ML IV (00:03)
[2022-07-23 00:05] VITALS: BP 114/88; PULSE 90; RESP 14; O2SAT 99
[2022-07-23 00:13] LABS: Urine Appearance Clear (CLEAR)
[2022-07-23 00:14] LABS: Add Urine Microscopic? YES; Bilirubin Urine Neg (Negative); Blood Urine Neg (Negative); Glucose Urine UA Norm (Normal); Ketones Urine Negative (Negative); Leukocyte Esterase Urine Negative (Negative); Nitrate Urine Negative (Negative); Protein Urine Trace (Negative); Squamous Epithelial Cell Urine 0-4 /hpf (0-5); Urine Color Straw (Yellow); Urobilinogen Urine Norm (Negative); pH Urine 5 (5-7)
[2022-07-23 00:15] LABS: Add Urine Culture? No; Bacteria Urine TRACE /hpf
[2022-07-23] MEDS: diphenhydrAMINE 50 mg/mL SDV 1mL IVP (00:32)
[2022-07-23] MEDS: metoclopramide 5 mg/mL SDV 2 mL 10 MG IVP (00:32)
[2022-07-23 01:35] VITALS: BP 113/73; PULSE 92; RESP 14; O2SAT 98
--- NOTE | 2022-07-24 15:23 | DCPLANNER ---
manager sustainability called patient due to no primary care physician - no answer at this time
== END 2022-07-23 01:36 | disposition home or self-care (01) ==
PROVIDERS: Emergency Provider Emergency Medicine
DX: R10.9 Unspecified abdominal pain (principal); R11.11 Vomiting without nausea; N83.202 Unspecified ovarian cyst, left side; F17.210 Nicotine dependence, cigarettes, uncomplicated
CPT/HCPCS: 74177; 80053; 81001; 83690; 84703; 85025; 96361; 96374; 96375; 99285; J1170; J1200; J2270; J2405; J2765; J7030; Q9967